=== PATIENT | female | born 1940 | race Caucasian/White ===

== ENCOUNTER 2016-11-24 15:59 | Inpatient (IN) | payer MEDICARE, BC ==
[~2016-11-24] VITALS: Ht 160 cm; Wt 76.6 kg
[~2016-11-24 15:59] MED LIST: AMLO5TAB2 PO; ASPI1TAB PO; ATEN25TA PO; BENT20TA PO; BUME1TAB29 PO; CITA20TA4 PO; DONETAB6 PO; ENAL10TA2 PO; INSULANT SC; LANS30CA PO; SIMV40TA2 PO
[2016-11-24 18:00] VITALS: BP 158/67
--- NOTE | 2016-11-24 19:53 | CR ---
DATE OF CONSULTATION: 11/24/2016 REFERRING PHYSICIAN: Dr. Viki Macias. INDICATIONS: Syncope, bradycardia. HISTORY OF PRESENT ILLNESS: Ms. Samayoa is previously unknown to me. She is a 76-year-old female who has history of coronary artery disease with remote coronary event in 1990. She presented to emergency room in [facility] yesterday after a syncopal event. Unfortunately the patient has dementia and consequently the history provided is somewhat limited. But nevertheless, she remembers that she was standing for prolonged period of time putting away clothes and fairly suddenly noted onset of nausea with sensation of near vomiting and flush feeling in her chest. She thought she had enough time to walk to the next room and sit down but she actually ended up losing consciousness. She came to probably quite promptly and called her daughter who lives nearby who eventually ended up calling an ambulance. She was brought to [facility] where the evaluation was relatively unremarkable but she was somewhat bradycardic in the ER and she had one episode of pause which looks to be like probably not conducted PAC which was a little shy of 2 seconds. But nevertheless for the most part her heart rate was reasonably good in low 50s. She was eventually transferred to our facility. When I saw the patient she was comfortable. She had no complaints. Unfortunately due to her dementia the story is not consistently repeated but it appeared that she may have had yet another episode of syncope a few weeks ago. At this point she has no complaints. PAST MEDICAL HISTORY: 1. Coronary artery disease, history of myocardial infarction in 1990, last cardiac catheterization was in 2013 in [place], it revealed distally occluded left anterior descending artery, about 50% stenosis in left circumflex and EF about 50%. 2. Dyslipidemia. 3. Depression. 4. Dementia. 5. Pernicious anemia. 6. Type 2 diabetes of many years with prominent peripheral neuropathy. 7. History of peptic ulcer disease and gastroesophageal reflux disease. 8. Chronic renal insufficiency. SURGICAL HISTORY: Positive for ankle surgery, cholecystectomy, tubal ligation. OUTPATIENT MEDICATIONS: - atenolol 25 a day - donepezil 5 mg - aspirin 81 a day - Bumex 1 mg a day - citalopram 20 mg day - dicyclomine 20 mg a day - lansoprazole 30 mg a day - Lantus - Norvasc 5 mg a day - simvastatin 40 mg ALLERGIES: No allergies. SOCIAL HISTORY: The patient is single, was never . She has one daughter. She used to smoke but quit in 1990. There is no history of drug or alcohol use. She lives alone in an apartment and her daughter lives just across the street. FAMILY HISTORY: No first-degree relatives with coronary artery disease. REVIEW OF SYSTEMS: She denies any recent fever, chills. There was episodes of nausea but no vomiting. No bleeding problems. No abdominal pain. No incontinence. No peripheral edema. She may have had yet another syncopal event a few weeks ago but unfortunately she is unclear about this. She has slowly progressive dementia but is still able to live independently and communication with her is still perfectly meaningful even though she has definite short-term memory loss. PHYSICAL EXAMINATION: Ms. Samayoa is a 76-year-old female who appears approximately her age. Blood pressure documented 158/67, heart rate 56, she is afebrile, saturation is 96% on room air. Documented weight is 75 kg. She is alert and oriented times three even though she had some trouble with place. Her JVP is not elevated. I do not appreciate carotid bruit. Lungs are clear with good air movement. Heart exam regular rhythm. I do not appreciate a distinct murmur or gallop or rub. Abdomen is soft. No hepatosplenomegaly. No tenderness or rebound tenderness. Good bowel sounds. Extremities are free of edema. Peripheral pulses are easily palpable. LABORATORY DATA: Are from [facility]: She had basic metabolic panel which was normal but for glucose 146, normal liver function tests and normal CBC. Her troponin was negative. Urinalysis was positive for trace protein and some glucose. Chest x-ray was unremarkable. There was several ECGs, all of them revealed sinus bradycardia with heart rate in 50s and nonspecific ST-T abnormalities. There were nonspecific repolarization abnormalities in precordial leads and poor R-wave progression. ASSESSMENT/PLAN: Ms. Samayoa is a 76-year-old female who suffered a syncopal event. She has established coronary artery disease and mildly reduced LV systolic function based on heart catheterization in 2013. The history does not look like sick sinus syndrome, it seems to be more suggestive of orthostatic or maybe vasovagal event. I do think it is appropriate to discontinue her beta william and continue monitoring her on telemetry. My first impression is that she will not need a pacemaker but the time will tell. Otherwise, I do not believe that there are any further adjustments that need to be made. She does not have any anginal symptoms and she does not have clinical congestive heart failure. I spoke extensively with her daughter about the plan and I also spoke with Dr. Macias. I will follow the patient with you. NIRMALA
[2016-11-24] MEDS ORDERED: LIDO1PAD TOP (20:52)
[2016-11-24] MEDS ORDERED: CLOB0.0548 TOP (20:53)
[2016-11-24] MEDS ORDERED: NITR4TASL SL (20:53)
[2016-11-24] MEDS: HumaLOG INSULIN (NovoLOG) PER UNIT SC SCH (21:00)
[2016-11-24] MEDS ORDERED: DEXTROSE 50% 50 ML SYRINGE IV PRN (21:00)
[2016-11-24] MEDS ORDERED: **NOTE PATIENT COMMENT** MISC XX PRN (21:00)
[2016-11-24] MEDS ORDERED: GLUCOSE 4 GM CHEW TABLET PO PRN (21:00)
[2016-11-24] MEDS ORDERED: GLUCAGON FOR INJ 1 MG VIAL (J1610) SC PRN (21:00)
[2016-11-24] MEDS ORDERED: ONDANSETRON 4MG/2ML VIAL (J2405) IV PRN (21:00)
[2016-11-24] MEDS ORDERED: LIDOCAINE 5% (LIDODERM) PATCH TOP PRN (21:00)
--- NOTE | 2016-11-24 21:36 | HPEPDOC ---
General Date of Admission Nov 24, 2016 at 17:39 Attending Physician: TATI HERNANDEZ Chief Complaint The patient is a 76-year-old female admitted with a reason for visit of Bradycardia. Source: Patient, Family, RN notes reviewed, Old records Exam Limitations: No limitations Timing/Duration: Day(s) Severity: Mild Associated Symptoms: Diaphoresis, Headaches, Nausea, Syncope, Dizziness History of Present Illness Ms. Samayoa is a 76-year-old female who is a transfer from [facility] for bradycardia. She is accompanied by her daughter who provides much of the history secondary to patient's underlying Alzheimer's disease. Past medical history significant for diabetes mellitus, dyslipidemia, congestive heart failure, gastroesophageal reflux disease, Alzheimer's disease, coronary artery disease with history of myocardial infarction, history of cholelithiasis with subsequent cholecystectomy, hiatal hernia, anxiety. Daughter states that at 3:00 yesterday afternoon patient developed nausea with a profusely watery mouth and felt hot and flushed before ending up on the floor. Unsure about mechanical fall versus syncope. Patient does state that she called out to her daughter who lives across the wall and when her daughter found her she was sitting on her bed and crying. Daughter states that she gave her mother aspirin, nitroglycerin. She states that her mother complained of a heaviness in her chest and pain in her back. During the episode she also complained of a headache. She states that the pain in her chest with sharp and lasted approximately 3 seconds before abating. The daughter states that the patient has had similar episodes, but not as severe. The most recent episode was approximately 3 weeks ago and before that about 1 month ago. The daughter states that the symptoms are similar with each episode which includes nausea, profusely watery mouth, and feeling hot and flushed. Patient does state that she does feel short of breath at rest, does complain of night sweats and diaphoresis, feelings of dizziness and lightheadedness, chronic neuropathy, chronic swelling in her lower extremities, chronic low back and right hip pain, and diarrhea. Besides review of systems listed above all other review of systems are negative. Hospitalist service was consulted and patient was admitted for further medical management. Home Medications Scheduled Amlodipine Besylate (Amlodipine Besylate) 5 Mg Tab 5 MG PO DAILY (Reported) Aspirin (Aspirin 81) 81 Mg Tab 81 MG PO DAILY (Reported) Citalopram Hydrobromide (Citalopram Hydrobromide) 20 Mg Tab 20 MG PO DAILY ( Reported) Enalapril Maleate (Enalapril Maleate) 10 Mg Tab 10 MG PO DAILY (Reported) Insulin Glargine (Lantus) 1 Units/0.01 Ml Susp 34 UNITS SC QAM (Reported) Lansoprazole (Lansoprazole) 30 Mg Cap 30 MG PO DAILY (Reported) Simvastatin - High Dose (Simvastatin) 40 Mg Tab 40 MG PO QHS (Reported) Scheduled PRN (Lidocaine) 5 % Pad 1 PATCH TOP DAILY PRN PRN PAIN (Reported) APPLY TO BACK Clobetasol Propionate (Clobetasol Propionate E) 0.05 % Cre 1 DOSE TOP BID PRN PRN RASH (Reported) APPLY TO PERINEAL RASH Nitroglycerin (Nitrostat) 0.4 Mg Subl 0.4 MG SL NITRO PRN PRN CHEST PAIN ( Reported) Allergies Coded Allergies: TAPE (Verified Allergy, Unknown, ADHESIVE TAPE, 01/05/15) Past Medical History Medical History 1. Coronary artery disease, myocardial infarction in 1990 2. Diabetes mellitus 3. Congestive heart failure 4. Alzheimer's disease 5. Dyslipidemia 6. Gastroesophageal reflux disease 7. Anxiety 8. Hiatal hernia 9. History of cholelithiasis with cholecystectomy Surgical History 1. Cardiac catheterization 2. Cholecystectomy 3. Tubal ligation 4. Right ankle surgery 5. Tonsillectomy Family History Significant Family History: Asthma, Diabetes, Heart disease (father, myocardial infarction at 47) Social History * Smoker: former Smoker (3 packs per day for 30 years = [id number] history) Alcohol: Denies Drugs: denies Recent Travel/Sick Contacts: Denies: Recent sick contacts, Recent travel Lives independently in a home for seniors No pets Traveled to [place] [facility] Den[facility] exposures Review of Symptoms Constitutional: Reports: Night Sweats, Denies: Chills, Fever Eyes: Denies: Vision change ENT: Reports: Head Aches, Denies: Sinus Congestion, Sore Throat Skin: Denies: Lesions, Rash Pulmonary: Reports: Dyspnea (at rest, 1 episode), Other Symptoms (Sharp chest pain), Denies: Cough Cardiovascular: Reports: Chest Pain (sharp, 3 seconds in duration), Edema ( chronic), Lt Headedness, Denies: Palpitations Gastrointestinal: Reports: Diarrhea, Nausea, Denies: Abdominal Pain, Constipation, Hematochezia, Melena, Vomiting Genitourinary: Denies: Dysuria, Frequency, Hematuria, Incontinence Hematologic: Denies: Bruising Musculoskeletal: Reports: Back Pain, Joint Pain (right hip) Neurological: Reports: Numbness (chronic, bilateral upper and lower extremities ), Denies: Weakness Psych: Reports: Memory Issues (history of Alzheimer's disease) Physical Examination General Exam: Positive: Alert, Cooperative Eye Exam: Positive: Conjunctiva & lids normal, EOMI, PERRLA, Negative: Sclera icteric ENT Exam: Positive: Atraumatic, Mucous membr. moist/pink, Nares Patent, Pharynx Normal, Tongue Midline Neck Exam: Positive: Supple, Negative: JVD, thyromegaly Chest Exam: Positive: Clear to auscultation, Normal air movement Heart Exam: Positive: Bradycardic, Normal S1, Normal S2, Rate Normal, Regular Rhythm, Negative: Murmurs Telemetry: Positive: Bradycardia, No significant arrhythmia Abdomen Exam: Positive: BS Hypoactive, Soft, Negative: Tenderness Extremity Exam: Positive: Normal pulses, Negative: Clubbing, Cyanosis, Edema, Swelling, Tenderness Skin Exam: Positive: Nl turgor and temperature, Negative: Lesion, Rash Neuro Exam: Positive: Cranial Nerves 3-12 NL, Normal Speech Psych Exam: Negative: Oriented x 3 (certain oriented 2) Vital Signs T 96 HR 56 RR 18 BP 158/67 O2 96% on room air Weight (kg): 75.1 Laboratory Data CBC/BMP Laboratory results from [facility] facility: WBC 9.6 Hemoglobin 14.5 Hematocrit 42.9 Platelets 308 Sodium 134 Potassium 4.9 Chloride 97 Bicarbonate 27 BUN 16 Creatinine 1.1 Glucose 290 PT/INR 10.8/1.1 D-dimer 1.44 ([facility]) BNP 117 Troponin 0.017 Microbiology Information provided from [facility]: Urinalysis - WBC 5-10 - Leukocyte esterase +1 RAD Interpretation STUDY: CXR Rad Actions: Report Reviewed [facility] Assessment/Plan This is a 76-year-old female who presents with bradycardia on EKG. Question possible syncopal event secondary to bradycardia. Problems (1) Syncope Status: Acute Problem Text: Question syncopal episode based on history provided Obtain CT of the head without contrast Perform orthostatic blood pressures Obtain serial troponins (2) Bradycardia Status: Acute Problem Text: Cardiology consulted Obtain echocardiogram Hold beta blockers at this time (3) Elevated d-dimer Status: Acute Problem Text: [facility] which is elevated per their laboratory normal ranges Will obtain CT angiogram of the chest (4) Abnormal urinalysis Status: Acute Problem Text: Urinalysis was [facility] showed 5-10 WBCs and 1+ leukocyte esterase Will obtain urine culture Patient has no complaints of urinary frequency, urinary urgency, hematuria Could consider antibiotic based on results of urine culture Patient complains of external vaginal itching: could consider prescribing antifungal (5) Diabetes mellitus Status: Chronic Problem Text: Blood glucose of 290 Will provide alternate coverage with Levemir 34 units subcutaneous daily ( patient takes Lantus 34 units subcutaneous daily at home) Sliding scale insulin with hypoglycemic protocol Plan / VTE VTE Prophylaxis Ordered?: Yes (TEDs and sequentials with knee-high compression stockings) Plan Plan Bradycardia Observe patient on telemetry with continuous cardiac monitoring. Obtain an echocardiogram. Hold patient's beta blockers at this time. Cardiology has been consulted. Syncope Obtain head CT without contrast. Obtain serial troponins. Troponin level at [facility] was 0.017. Obtain orthostatic blood pressures. Patient's blood pressure is 158/67. Will obtain echocardiogram. Patient has history of congestive heart failure. Abnormal urinalysis Urinalysis at [facility] indicated 1+ leukocyte esterase and 5-10 white blood cells. We will obtain urine culture. Patient's only complaint appears to be some external vaginal itching. Could consider prescribing an antifungal. Patient denies urinary frequency, urinary urgency, hematuria. Elevated d-dimer [facility], which is elevated per their laboratory normal ranges. Will obtain CT angiogram of the chest. Hyperglycemia Patient's blood glucose is 219. Patient is a known diabetic. Patient takes 34 units of Lantus subcutaneous daily. Will provide alternate coverage of Levemir 34 units subcutaneous daily as well as sliding scale insulin and hypoglycemic protocol. Diet: Consistent carbohydrate-2 g sodium DVT prophylaxis: TEDs and sequentials Disposition Admit to the PCU for observation Attending: Dr. Aponte Diet: Continue Current (consistent carbohydrate-2 g sodium) Activity: Continue Current Diagnostics: Check Labs, Repeat Labs in AM, Obtain Cultures, TTE Anticipated Discharge: Home [facility]NA [facility] Nov 24, 2016 21:36 Anticipated Discharge: Home [facility]NA [facility] Nov 24, 2016 21:36
[2016-11-24 21:39] VITALS: BP 155/64
[2016-11-24] MEDS ORDERED: diphenhydrAMINE INJ 50MG/ML VIAL (J1200) IV ONE (23:00)
[2016-11-24 23:06] LABS: ANION GAP 6 MEQ/L (8-16); BLOOD UREA NITROGEN 14 MG/DL (7-18); CALCIUM LEVEL 8.6 MG/DL (8.8-10.2); CARBON DIOXIDE LEVEL 27 MEQ/L (21-32); CHLORIDE LEVEL 105 MEQ/L (98-107); CREATININE FOR GFR 1.19 MG/DL (0.55-1.02); GLOMERULAR FILTRATION RATE 46.7 (>39); GLUCOSE, FASTING 272 MG/DL (83-110); POTASSIUM SERUM 4.7 MEQ/L (3.5-5.1); SODIUM LEVEL 138 MEQ/L (136-145)
[2016-11-24] MEDS ORDERED: SLF 3 ML SYR IV PRN (23:45)
[2016-11-25 00:15] VITALS: BP 154/74
[2016-11-25] MEDS ORDERED: ISOVUE-370 76% 100ML VIAL (Q9967) As Ordered ONE (00:33)
--- NOTE | 2016-11-25 01:50 | REPUSA ---
CLINICAL HISTORY: Dyspnea, exclude PE. TECHNIQUE: Multiple incremental axial, coronal and oblique images are obtained from the thoracic inle t to the upper abdomen. Intravenous contrast material was administered as per pulmonary embolism prot ocol. COMMENTS: There is excellent opacification of pulmonary arterial system without evidence for pulmonary embolism . Aorta is of normal caliber without evidence for dissection or aneurysm. Bilateral basilar atelectat ic pulmonary changes. There is no evidence of pleural or parenchymal mass. There are no pleural effusions. There is no evid ence of hilar or mediastinal lymphadenopathy. The heart and great vessels are within normal limits. Images of the upper abdomen demonstrate no evidence of adrenal mass. The bony structures are free of lytic or blastic lesions. Multilevel degenerative changes are seen in volving the visualized thoracolumbar spine. Scattered calcifications are seen involving the aorta and major branches compatible with atherosclero sis. IMPRESSION: No evidence for pulmonary embolism. Bilateral basilar atelectatic pulmonary changes. Thank you for your kind referral of this patient.
--- NOTE | 2016-11-25 01:50 | REPUSA ---
CLINICAL HISTORY: Headache. TECHNIQUE: Multiple axial CT images were obtained through the brain without IV contrast material. COMMENTS: There is normal configuration of sella turcica. There are no intra or extra-axial collections. There is no mass effect or midline shift. There is no evidence of hematoma formation. No hydrocephalus is p resent. The ventricles are symmetrical. No abnormal calcifications are present. There is diffuse age-appropriate cerebellar and cerebral atrophy with proportionally dilated ventricl es and cortical sulci. There are bilateral periventricular and subcortical white matter hypolucencies compatible with mild c hronic microvascular disease. Otherwise, no significant focal abnormalities are seen either in the posterior fossa or supratentoria l compartment. IMPRESSION: 1. Age-appropriate cerebellar and cerebral atrophy. 2. Mild chronic microvascular disease. 3. No evidence of acute intracranial pathology. Thank you for your kind referral of this patient.
[2016-11-25] MEDS: SLF 3 ML SYR IV SCH ×3 (05:33→22:42)
[2016-11-25 06:00] VITALS: BP 144/62
[2016-11-25 06:26] LABS: MEAN CORPUSCULAR HEMOGLOBIN 29.5 pg (27.0-33.0); MEAN CORPUSCULAR HGB CONC 32.7 g/dl (32.0-36.5); MEAN CORPUSCULAR VOLUME 90.1 fl (80.0-96.0); RED CELL DISTRIBUTION WIDTH 12.1 % (11.5-14.5); WHITE BLOOD COUNT 7.7 K/mm3 (4.0-10.0)
[2016-11-25 06:32] LABS: BLOOD UREA NITROGEN 13 MG/DL (7-18); CALCIUM LEVEL 8.8 MG/DL (8.8-10.2); CARBON DIOXIDE LEVEL 26 MEQ/L (21-32); CHLORIDE LEVEL 110 MEQ/L (98-107); CREATININE FOR GFR 0.96 MG/DL (0.55-1.02); GLUCOSE, FASTING 137 MG/DL (83-110)
[2016-11-25 06:44] LABS: ANION GAP 5 MEQ/L (8-16); POTASSIUM SERUM 4.3 MEQ/L (3.5-5.1); SODIUM LEVEL 141 MEQ/L (136-145)
[2016-11-25] MEDS: HumaLOG INSULIN (NovoLOG) PER UNIT SC SCH ×4 (07:50→21:00)
[2016-11-25 08:04] VITALS: BP 128/60
--- NOTE | 2016-11-25 08:55 | IPN ---
DATE: 11/25/2016 Mrs. Samayoa had a good night. She did not have any bradycardia out of what I would consider normal. There was one pause of 1.8-second, which is perfectly normal during sleep, but for the most part her heart rate was in the 50s and 60s. She also had episodes what looks like hallucinations. Apparently, she had the impression that people are coming to her room and stealing her furniture. It looks like her mind has cleared up in the morning. Blood pressure is 128/60, heart rate, as above, in 50s and 60s. She is afebrile. Saturation 97% on room air. Weight is 76.3 kg. She is alert and oriented times two. She was confused about date, but she recognizes she was in the hospital, even though she thought that [place] was in [place]. Her jugular venous pressure is not up. Lungs are clear to auscultation. Heart exam with regular rhythm without gallop, rub or murmur. Abdomen is soft, nontender. No peripheral edema and neurologically, besides dementia, I do not appreciate any focal findings. LABORATORY: CBC is normal. Basic metabolic panel is essentially normal. Cardiac enzymes have been normal. ECG is pending. ASSESSMENT AND PLAN: Mrs. Samayoa is a 76-year-old woman who has a remote history of coronary artery disease with myocardial infarction in 1990. Her last heart catheterization in 2013 revealing distally occluded LAD and borderline disease in left circumflex and mildly reduced LV systolic function. She presented after a syncopal event. By description, it sounds to be either orthostatic or neurocardiogenic. She did have mild bradycardia, but certainly no findings to support placement of pacemaker. Her atenolol has been discontinued. At this point, I would continue monitoring for at least another 24 hours and would let the patient ambulate with supervision. Provided no other events occur, I would think it will be fine from my perspective to discharge her home. Obviously, if we detect some bradyarrhythmias or other abnormalities, this can be always reconsidered. I will not make any medication changes today. Dr. Cardenas will be available tomorrow. He is her principal loss prevention leader.
[2016-11-25] MEDS: PANTOPRAZOLE 40MG INJ (PROTONIX) (C9113) IV SCH (10:29)
[2016-11-25] MEDS: ASPIRIN 81 MG ENTERIC TAB PO SCH (10:33)
[2016-11-25] MEDS: ENALAPRIL MALEATE 10 MG TAB PO SCH (10:34)
[2016-11-25] MEDS: CitaloPRAM (CeleXA) 20 MG TAB PO SCH (10:34)
[2016-11-25] MEDS: amLODIPine 5 MG TAB PO SCH (10:34)
[2016-11-25 11:43] VITALS: BP 126/68
[2016-11-25 16:00] VITALS: BP 130/65
--- NOTE | 2016-11-25 19:16 | IPNPDOC ---
Subjective Date Seen The patient was seen on 11/25/16. Subjective Chief Complaint/HPI The patient is a 76-year-old female admitted with a reason for visit of Bradycardia. Events since last encounter pt seen and examined, appears to doing well, was confused last night per nursing staff and her daughter, her daughter was sitting at bedside who stated this has happened before, pt had a one second pause on tele, she denies any dizziness, Objective Physical Examination General Exam: Positive: Cooperative Eye Exam: Positive: Conjunctiva & lids normal, EOMI, PERRLA, Negative: Sclera icteric ENT Exam: Positive: Atraumatic, Mucous membr. moist/pink, Nares Patent, Pharynx Normal, Tongue Midline Neck Exam: Positive: Supple, Negative: JVD, thyromegaly Chest Exam: Positive: Clear to auscultation, Normal air movement Heart Exam: Positive: Bradycardic, Normal S1, Normal S2, Rate Normal, Regular Rhythm, Negative: Murmurs Telemetry: Positive: Bradycardia, No significant arrhythmia Abdomen Exam: Positive: BS Hypoactive, Soft, Negative: Tenderness Extremity Exam: Positive: Normal pulses, Negative: Clubbing, Cyanosis, Edema, Swelling, Tenderness Skin Exam: Positive: Nl turgor and temperature, Negative: Lesion, Rash Neuro Exam: Positive: Cranial Nerves 3-12 NL, Normal Speech Psych Exam: Negative: Oriented x 3 (certain oriented 2) Assessment /Plan Problems (1) Syncope Status: Acute Problem Text: * Question syncopal episode based on history provided, fall was unwitnessed and pt can't remember if she lost consciousness * CT head was negative * will order orthostatics * continue to monitor on tele * cardiology consulted * PT/OT pt lives alone (2) Bradycardia Status: Acute Problem Text: Cardiology consulted Obtain echocardiogram Hold beta blockers at this time (3) Elevated d-dimer Status: Acute Problem Text: D-dimer [facility] facility was 1.44 which is elevated per their laboratory normal ranges CT negative for PE (4) Diabetes mellitus Status: Chronic Problem Text: Blood glucose of 290 Will provide alternate coverage with Levemir 34 units subcutaneous daily ( patient takes Lantus 34 units subcutaneous daily at home) Sliding scale insulin with hypoglycemic protocol (5) Alzheimer's dementia Status: Chronic Response to Treatment: Stable Problem Text: pt has a chronic dementia Plan/VTE VTE Prophylaxis Ordered?: Yes (TEDs and sequentials with knee-high compression stockings) Plan Diet: Continue Current (consistent carbohydrate-2 g sodium) Activity: Continue Current Diagnostics: Check Labs, Repeat Labs in AM, Obtain Cultures, TTE Anticipated Discharge: Home VS, I&O, 24H, [place] Vital Signs/I&O Vital Signs Date Time Temp Pulse Resp B/P Pulse Ox O2 Delivery O2 Flow Rate FiO2 11/25/16 16:00 97.7 76 18 130/65 97 Room Air I&O- Last 24 Hours up to 6 AM 11/25/16 05:59 Intake Total 0 ml Output Total 250 ml Balance -250 ml Laboratory Data 24H LABS Laboratory Tests 2 11/24/16 21:47: Bedside Glucose (Misc Panel) 266H 11/24/16 21:55: Anion Gap 6L, Blood Urea Nitrogen 14, Creatinine 1.19H, Sodium Level 138, Potassium Level 4.7, Chloride Level 105, Carbon Dioxide Level 27, Calcium Level 8.6L, Total Creatine Kinase 74, Creatine Kinase MB 1.0, Creatine Kinase MB Relative Index 1.35, Glomerular Filtration Rate 46.7, Troponin I < 0.02 11/25/16 05:32: Anion Gap 5L, Blood Urea Nitrogen 13, Creatinine 0.96, Sodium Level 141, Potassium Level 4.3, Chloride Level 110H, Carbon Dioxide Level 26, Calcium Level 8.8, Total Creatine Kinase 70, Creatine Kinase MB 1.0, Creatine Kinase MB Relative Index 0.01, Troponin I < 0.02 11/25/16 11:17: Bedside Glucose (Misc Panel) 308H 11/25/16 16:45: Bedside Glucose (Misc Panel) 289H CBC/BMP Laboratory Tests 11/24/16 21:55 Calcium Level 8.6 L, Total Creatine Kinase 74 11/25/16 05:32 Calcium Level 8.8, Total Creatine Kinase 70, Red Blood Count 4.70, Mean Corpuscular Volume 90.1, Mean Corpuscular Hemoglobin 29.5, Mean Corpuscular Hemoglobin Concent 32.7, Red Cell Distribution Width 12.1 HEATHER TEE DO Nov 25, 2016 19:16
[2016-11-25 20:07] VITALS: BP 146/64
[2016-11-25] MEDS ORDERED: LEVEMIR (INSULIN DETEMIR) 1 UNITS/0.01ML SC SCH (21:00)
[2016-11-25] MEDS ORDERED: SIMVASTATIN 40 MG TAB PO SCH (21:00)
[2016-11-26 00:05] VITALS: BP 144/69
[2016-11-26] MEDS: SLF 3 ML SYR IV SCH ×2 (06:00→13:02)
[2016-11-26 06:24] VITALS: BP 129/60
[2016-11-26 06:53] LABS: MEAN CORPUSCULAR HGB CONC 33.5 g/dl (32.0-36.5); MEAN CORPUSCULAR VOLUME 89.6 fl (80.0-96.0); RED CELL DISTRIBUTION WIDTH 12.2 % (11.5-14.5); WHITE BLOOD COUNT 8.2 K/mm3 (4.0-10.0)
[2016-11-26 07:06] LABS: ANION GAP 9 MEQ/L (8-16); BLOOD UREA NITROGEN 16 MG/DL (7-18); CALCIUM LEVEL 8.5 MG/DL (8.8-10.2); CARBON DIOXIDE LEVEL 25 MEQ/L (21-32); CHLORIDE LEVEL 107 MEQ/L (98-107); GLOMERULAR FILTRATION RATE > 60.0 (>39); GLUCOSE, FASTING 136 MG/DL (83-110); POTASSIUM SERUM 3.6 MEQ/L (3.5-5.1); SODIUM LEVEL 141 MEQ/L (136-145)
[2016-11-26 08:00] VITALS: BP_SYST 126; BP_SYST 133; BP_DIAS 69; BP_DIAS 75
--- NOTE | 2016-11-26 08:32 | ECHO ---
DATE OF PROCEDURE: 11/25/2016 REFERRING PHYSICIAN: Dr. Lara Tafoya . INDICATION: Syncope and coronary artery disease. The patient measures 160 cm and weight 76 kg. DIMENSIONS: IVS - 1.0 LV - 4.8 LVPW -0.9 LA - 3.9 Aorta - 2.8 FINDINGS: The study is of fair technical quality. Left ventricle is of normal size. There is a wall motion abnormality involving distal septum, distal anterior wall and apex that are essentially akinetic. The remaining LV segment appear to have normal contractility. Overall ejection fraction is estimated around 45 to 50%. Right ventricle is normal. Both atria appear normal. There are mild sclerotic abnormalities of aortic and mitral valves but mobility of both is preserved. Tricuspid valve appears normal. Pulmonic valve was not well seen. No pericardial effusion is noted. Inferior vena cava is normal size. Aortic root is normal. Aortic arch was not well seen. Abdominal aorta appears normal. Doppler interrogation reveals no significant aortic stenosis or insufficiency. There is trace mitral insufficiency and trace tricuspid insufficiency. Calculated pulmonary artery pressure is within normal limits. Mitral inflow pattern and tissue Doppler imaging of mitral annulus reveal grade 1 diastolic dysfunction. CONCLUSION: 1. Study is of fair technical quality. 2. Normal LV size with segmental wall motion abnormality as noted above and overall mildly reduced LV systolic function. Grade 1 diastolic dysfunction. 3. No hemodynamically significant valvular disease. 4. Likely normal central venous pressure and pulmonary artery pressure. 5. Cannot completely rule out presence of small PFO. COMMENT: SBE prophylaxis is not recommended. INDICATION MTDD
[2016-11-26] MEDS: CitaloPRAM (CeleXA) 20 MG TAB PO SCH (08:41)
[2016-11-26] MEDS: PANTOPRAZOLE 40MG INJ (PROTONIX) (C9113) IV SCH (08:41)
[2016-11-26] MEDS: HumaLOG INSULIN (NovoLOG) PER UNIT SC SCH ×2 (08:41→13:03)
[2016-11-26 08:42] VITALS: BP 133/69
[2016-11-26] MEDS: ENALAPRIL MALEATE 10 MG TAB PO SCH (08:42)
[2016-11-26] MEDS: amLODIPine 5 MG TAB PO SCH (08:43)
[2016-11-26] MEDS: ASPIRIN 81 MG ENTERIC TAB PO SCH (08:43)
--- NOTE | 2016-11-26 09:13 | IPNPDOC ---
Subjective Date Seen The patient was seen on 11/26/16. Subjective Chief Complaint/HPI The patient is a 76-year-old female admitted with a reason for visit of Bradycardia. General: Reports: Normal Appetite, Denies: Chills Constitutional: Denies: Fever, Night Sweats Pulmonary: Denies: Dyspnea, Pleuritic Chest Pain Cardiovascular: Denies: Chest Pain, Orthopnea, Palpitations Gastrointestinal: Denies: Abdominal Pain, Vomiting Objective Physical Examination General Exam: Positive: Cooperative Eye Exam: Positive: Conjunctiva & lids normal, EOMI, PERRLA, Negative: Sclera icteric ENT Exam: Positive: Atraumatic, Mucous membr. moist/pink, Nares Patent, Pharynx Normal, Tongue Midline Neck Exam: Positive: Supple, Negative: JVD, thyromegaly Chest Exam: Positive: Clear to auscultation, Normal air movement Heart Exam: Positive: Bradycardic, Normal S1, Normal S2, Rate Normal, Regular Rhythm, Negative: Murmurs Telemetry: Positive: Bradycardia, No significant arrhythmia Abdomen Exam: Positive: BS Hypoactive, Soft, Negative: Hepatospenomegaly, Tenderness Extremity Exam: Positive: Normal pulses, Negative: Clubbing, Cyanosis, Edema, Swelling, Tenderness Skin Exam: Positive: Nl turgor and temperature, Negative: Lesion, Rash Neuro Exam: Positive: Cranial Nerves 3-12 NL, Normal Speech Psych Exam: Negative: Oriented x 3 (certain oriented 2) Assessment /Plan Problems (1) Syncope Status: Acute Problem Text: Stable and OK for discharge per Cardiology. * Question syncopal episode based on history provided, fall was unwitnessed and pt can't remember if she lost consciousness * CT head was negative * will order orthostatics * continue to monitor on tele * cardiology consulted * PT/OT pt lives alone (2) Bradycardia Status: Acute Problem Text: Cardiology consulted Obtain echocardiogram Hold beta blockers at this time (3) Elevated d-dimer Status: Acute Problem Text: D-dimer outlying facility was 1.44 which is elevated per their laboratory normal ranges CT negative for PE (4) Diabetes mellitus Status: Chronic Problem Text: Blood glucose of 290 Will provide alternate coverage with Levemir 34 units subcutaneous daily ( patient takes Lantus 34 units subcutaneous daily at home) Sliding scale insulin with hypoglycemic protocol (5) Alzheimer's dementia Status: Chronic Response to Treatment: Stable Problem Text: pt has a chronic dementia. she will be candidate for placement eventually. Plan/VTE VTE Prophylaxis Ordered?: Yes (TEDs and sequentials with knee-high compression stockings) Plan Diet: Continue Current (consistent carbohydrate-2 g sodium) Activity: Continue Current Therapy: Home Safety Eval (Likely discharge if HSE passed.) Diagnostics: Check Labs, Repeat Labs in AM, Obtain Cultures, TTE Anticipated Discharge: Home VS, I&O, 24H, Fishbone Vital Signs/I&O Vital Signs Date Time Temp Pulse Resp B/P Pulse Ox O2 Delivery O2 Flow Rate FiO2 11/26/16 08:43 66 11/26/16 08:42 133/69 11/26/16 08:00 98.4 18 96 Room Air I&O- Last 24 Hours up to 6 AM 11/26/16 06:00 Intake Total 240 ml Output Total 900 ml Balance -660 ml Laboratory Data 24H LABS Laboratory Tests 2 11/25/16 11:17: Bedside Glucose (Misc Panel) 308H 11/25/16 16:45: Bedside Glucose (Misc Panel) 289H 11/25/16 20:11: Bedside Glucose (Misc Panel) 245H 11/26/16 06:19: Anion Gap 9, Blood Urea Nitrogen 16, Creatinine 0.90, Sodium Level 141, Potassium Level 3.6, Chloride Level 107, Carbon Dioxide Level 25, Calcium Level 8.5L, Glomerular Filtration Rate > 60.0 CBC/BMP Laboratory Tests 11/26/16 06:19 Calcium Level 8.5 L, Red Blood Count 4.06, Mean Corpuscular Volume 89.6, Mean Corpuscular Hemoglobin 30.0, Mean Corpuscular Hemoglobin Concent 33.5, Red Cell Distribution Width 12.2 Carlos Roldan MD Nov 26, 2016 09:13
[2016-11-26 12:00] VITALS: BP 126/72
--- NOTE | 2016-11-27 08:57 | DSES ---
DATE OF ADMISSION: 11/24/2016 DATE OF DISCHARGE: 11/26/2016 CHIEF COMPLAINT: The patient was admitted because of complaint of syncopal event or near syncopal event. She had bradycardia. She has Alzheimer's disease, history of congestive heart failure (CHF), history of coronary disease with myocardial infarction, history of cholelithiasis and subsequent cholecystectomy, hernia, anxiety. She was admitted as she felt initially profusely drooling in her mouth and felt hot and flushed and then she fainted. She was seen at [facility] and transferred here, admitted by Dr. Aponte and seen in consultation by Dr. Sommer. PAST MEDICAL HISTORY: She said she had a W[place] in 1990, catheterization in 2013 which revealed distally occluded left anterior descending with 50% stenosis in the left circumflex and ejection fraction of about 50%, dyslipidemia, depression, dementia, pernicious anemia, diabetes type 2 for many years. MEDICATIONS: On admission included: - donepezil 5 mg daily - atenolol 25 mg daily - citalopram 20 mg daily - Bumex 1 mg daily - dicyclomine 20 mg daily - Norvasc 5 - simvastatin 40 She quit smoking in 1990. She was felt that primarily the bradycardia was in part due to medication side effects and possible vasodepressor syncope. She was taken off atenolol. Donepezil was held. Bentyl was held. Her heart rate improved to run about 60. She had no further episodes and was up and around walking without specific limitations. CONDITION ON DISCHARGE: Improved without recurrent syncope. DISCHARGE DIAGNOSES: 1. Syncope associated with bradycardia, possible vasodepressor syncope. 2. History of coronary artery disease. 3. Diabetes type 2 in fair control. PLAN: Discharge home. Followup in 1-[address] Roldan at his office. Followup with Dr. Sommer per his specifications. Activity as tolerated. Resume controlled carbohydrate diet. DISCHARGE MEDICATIONS: - simvastatin 40 - Lantus 34 units daily - amlodipine 5 mg daily - aspirin 81 mg daily - Celexa 20 mg daily - Vasotec 10 mg daily - She will resume her proton pump inhibitor at 40 mg daily - pantoprazole 40 mg listed here, she may be using omeprazole at home Donepezil will be stopped. Bentyl will be stopped. Atenolol has been stopped. Without the atenololol, her blood pressure has remained satisfactory at 126/72 to 144/69.
== END 2016-11-26 16:00 | disposition home health service (06) | DRG 310 ==
LOC: M PCU 17:39
PROVIDERS: ADMIT Hospitalist; ATTEND Family Medicine
DX: R00.1 Bradycardia, unspecified (principal); R55 Syncope and collapse; E11.51 Type 2 diabetes mellitus with diabetic peripheral angiopathy without gangrene; Z79.899 Other long term (current) drug therapy; Z79.4 Long term (current) use of insulin; Z79.82 Long term (current) use of aspirin; I50.9 Heart failure, unspecified; I25.10 Atherosclerotic heart disease of native coronary artery without angina pectoris; I25.2 Old myocardial infarction; Z87.891 Personal history of nicotine dependence; G30.9 Alzheimer's disease, unspecified; F02.80 Dementia in other diseases classified elsewhere, unspecified severity, without behavioral disturbance, psychotic disturbance, mood disturbance, and anxiety; K21.9 Gastro-esophageal reflux disease without esophagitis; F41.9 Anxiety disorder, unspecified

== ENCOUNTER → 2016-12-04 | Outpatient (REF) | payer MEDICARE, BC ==
[~2016-12-04] MED LIST changes: +CLOB0.0548 TOP; +LIDO1PAD TOP; +NITR4TASL SL
== END ==
LOC: M SFHCCLAY 15:06
PROVIDERS: ATTEND Family Medicine
DX: E11.22 Type 2 diabetes mellitus with diabetic chronic kidney disease (principal)
CPT/HCPCS: 83036; G0463

== ENCOUNTER → 2017-05-04 | Outpatient (REF) | payer MEDICARE, BC | LOC: M SFHCCLAY 11:45 | PROVIDERS: ATTEND Family Medicine | DX: R30.0 Dysuria (principal) | CPT/HCPCS: 81002; 87088; 87186; G0463 ==

== ENCOUNTER → 2017-10-07 | Outpatient (REF) | payer MEDICARE, BC ==
[2017-10-07 19:18] LABS: ALT/SGPT 18 U/L (12-78); ANION GAP 7 MEQ/L (8-16); BLOOD UREA NITROGEN 14 MG/DL (7-18); CALCIUM LEVEL 8.9 MG/DL (8.8-10.2); CARBON DIOXIDE LEVEL 29 MEQ/L (21-32); CHLORIDE LEVEL 100 MEQ/L (98-107); CHOLESTEROL LEVEL 141 MG/DL (<200); CREATININE FOR GFR 0.94 MG/DL (0.55-1.02); GLOMERULAR FILTRATION RATE > 60.0 (>39); GLUCOSE, FASTING 334 MG/DL (70-100); HDL CHOLESTEROL 50 MG/DL (>40); LDL CHOLESTEROL 64.4 MG/DL (<100); NON-HDL-C 91 MG/DL; POTASSIUM SERUM 4.4 MEQ/L (3.5-5.1); SODIUM LEVEL 136 MEQ/L (136-145); TRIGLYCERIDES LEVEL 133 MG/DL (<150)
[2017-10-07 20:18] LABS: MALB URINE SIEMENS 26.3 MG/L; MAU/CREAT RATIO 24.1 MCG/MG (0.0-30.0)
[2017-10-07 21:42] LABS: ESTIMATED AVERAGE GLUCOSE 263 MG/DL (60-110); HEMOGLOBIN A1c 10.8 %
== END ==
LOC: M SFHCCLAY 10:56
DX: I25.10 Atherosclerotic heart disease of native coronary artery without angina pectoris (principal); E11.22 Type 2 diabetes mellitus with diabetic chronic kidney disease; N18.3 Chronic kidney disease, stage 3 (moderate); K21.0 Gastro-esophageal reflux disease with esophagitis; N76.3 Subacute and chronic vulvitis
CPT/HCPCS: 84460

== ENCOUNTER → 2017-12-16 | Outpatient (REF) | payer MEDICARE, BC ==
[2017-12-17 11:46] LABS: ANION GAP 7 MEQ/L (8-16); BLOOD UREA NITROGEN 19 MG/DL (7-18); CARBON DIOXIDE LEVEL 31 MEQ/L (21-32); CHLORIDE LEVEL 99 MEQ/L (98-107); GLOMERULAR FILTRATION RATE 56.9 (>39); GLUCOSE, FASTING 262 MG/DL (70-100); POTASSIUM SERUM 4.1 MEQ/L (3.5-5.1); SODIUM LEVEL 137 MEQ/L (136-145)
[2017-12-17 12:50] LABS: ESTIMATED AVERAGE GLUCOSE 243 MG/DL (60-110); HEMOGLOBIN A1c 10.1 %
== END ==
LOC: M SFHCCLAY 16:02
DX: I25.10 Atherosclerotic heart disease of native coronary artery without angina pectoris (principal); E11.22 Type 2 diabetes mellitus with diabetic chronic kidney disease; N18.3 Chronic kidney disease, stage 3 (moderate)
CPT/HCPCS: 83036

== ENCOUNTER → 2018-07-23 | Outpatient (REF) | payer MEDICARE, BC ==
[2018-07-23 17:00] LABS: ANION GAP 7 MEQ/L (8-16); BLOOD UREA NITROGEN 11 MG/DL (7-18); CALCIUM LEVEL 9.7 MG/DL (8.8-10.2); CARBON DIOXIDE LEVEL 32 MEQ/L (21-32); CHLORIDE LEVEL 97 MEQ/L (98-107); CREATININE FOR GFR 0.98 MG/DL (0.55-1.30); GLOMERULAR FILTRATION RATE 58.1 (>32); GLUCOSE, FASTING 134 MG/DL (70-100); POTASSIUM SERUM 4.1 MEQ/L (3.5-5.1); SODIUM LEVEL 136 MEQ/L (136-145)
[2018-07-23 17:14] LABS: ESTIMATED AVERAGE GLUCOSE 209 MG/DL (60-110); HEMOGLOBIN A1c 8.9 %
== END ==
LOC: M SFHCCLAY 12:32
DX: E11.22 Type 2 diabetes mellitus with diabetic chronic kidney disease (principal)
CPT/HCPCS: 83036

== ENCOUNTER → 2018-12-10 | Outpatient (REF) | payer MEDICARE, BC ==
[~2018-12-10] MED LIST changes: -AMLO5TAB2 PO; +AMLO5TAB6 PO
[2018-12-10 16:45] LABS: HEMOGLOBIN A1c 7.5 %
[2018-12-10 17:02] LABS: CALCIUM LEVEL 9.1 MG/DL (8.8-10.2); GLOMERULAR FILTRATION RATE 56.8 (>32); POTASSIUM SERUM 4.1 MEQ/L (3.5-5.1)
== END ==
LOC: M SFHCCLAY 12:16
PROVIDERS: ATTEND Family Medicine
DX: E11.22 Type 2 diabetes mellitus with diabetic chronic kidney disease (principal); I25.10 Atherosclerotic heart disease of native coronary artery without angina pectoris

== ENCOUNTER → 2019-05-25 | Outpatient (REF) | payer MEDICARE, BC ==
[~2019-05-25] MED LIST changes: -ASPI1TAB PO; +ASPI81TA26 PO; -CITA20TA4 PO; +CITA20TA6 PO; -SIMV40TA2 PO; +SIMV40TA20 PO
== END ==
LOC: M SFHCCLAY 11:11
PROVIDERS: ATTEND Family Medicine
DX: R10.9 Unspecified abdominal pain (principal); Z87.440 Personal history of urinary (tract) infections
CPT/HCPCS: 81002; 87086; G0463

== ENCOUNTER → 2019-06-09 | Outpatient (CLI) | payer MEDICARE, BC ==
[~2019-06-09] MED LIST changes: +SIMV40TA2 PO; -SIMV40TA20 PO
--- NOTE | 2019-06-09 14:00 | REP ---
BILATERAL ANKLE SERIES: Four views of the bilateral ankles performed. No fracture or dislocation is seen. Ankle mortise is anatomic bilaterally. There is mild bilateral soft tissue swelling. There is mild inferior calcaneal spurring bilaterally. There is mild calcification of the interosseous membrane between the distal tibia and fibula on the left. I see no other significant finding. IMPRESSION: No fracture or dislocation. Mild soft tissue swelling. Mild calcaneal spurring. Electronically Signed by Fahad Medina MD 06/09/2019 04:56 P
== END ==
LOC: M CLY 13:15
PROVIDERS: ATTEND Nurse Practitioner Family
DX: M25.471 Effusion, right ankle (principal); M25.472 Effusion, left ankle; M77.31 Calcaneal spur, right foot; M77.32 Calcaneal spur, left foot; M25.571 Pain in right ankle and joints of right foot; M25.572 Pain in left ankle and joints of left foot
CPT/HCPCS: 73610; G0463

== ENCOUNTER → 2020-04-04 | Outpatient (REF) | payer MEDICARE, BC ==
[~2020-04-04] MED LIST changes: -SIMV40TA2 PO; +SIMV40TA20 PO
[2020-04-04 18:31] LABS: HEMOGLOBIN A1c 8.4 %
== END ==
LOC: M SFHCCLAY 10:50
PROVIDERS: ATTEND Family Medicine
DX: E11.22 Type 2 diabetes mellitus with diabetic chronic kidney disease (principal)

== ENCOUNTER → 2020-05-01 | Outpatient (REF) ==
[~2020-05-01] MED LIST changes: +AMLO1TAB24 PO; -AMLO5TAB6 PO; +ENAL-36 PO; -ENAL10TA2 PO
[2020-07-10 09:55] LABS: HEMATOCRIT 39.4 % (36.0-47.0); HEMOGLOBIN 13.2 g/dl (12.0-15.5); MEAN CORPUSCULAR HEMOGLOBIN 30.3 pg (27.0-33.0); MEAN CORPUSCULAR HGB CONC 33.5 g/dl (32.0-36.5); MEAN CORPUSCULAR VOLUME 90.6 fl (80.0-96.0); PLATELET COUNT, AUTOMATED 302 10^3/uL (150-450); RED BLOOD COUNT 4.35 10^6/uL (4.00-5.40)
== END ==
PROVIDERS: ATTEND Family Medicine
DX: I10 Essential (primary) hypertension (principal)

== ENCOUNTER → 2020-05-08 | Outpatient (REF) ==
[2020-05-29 10:07] LABS: WHITE BLOOD COUNT 8.9 10^3/uL (4.0-10.0)
[2020-05-29 10:08] LABS: HEMOGLOBIN 13.8 g/dl (12.0-15.5); MEAN CORPUSCULAR HEMOGLOBIN 30.7 pg (27.0-33.0); MEAN CORPUSCULAR HGB CONC 33.7 g/dl (32.0-36.5); MEAN CORPUSCULAR VOLUME 91.1 fl (80.0-96.0); PLATELET COUNT, AUTOMATED 368 10^3/uL (150-450)
[2020-05-29 11:33] LABS: BLOOD UREA NITROGEN 11 MG/DL (7-18); CALCIUM LEVEL 8.8 MG/DL (8.8-10.2); CARBON DIOXIDE LEVEL 29 MEQ/L (21-32); CHLORIDE LEVEL 101 MEQ/L (98-107); CREATININE FOR GFR 0.92 MG/DL (0.55-1.30); GLOMERULAR FILTRATION RATE > 60.0 (>32); GLUCOSE, FASTING 241 MG/DL (70-100); POTASSIUM SERUM 3.9 MEQ/L (3.5-5.1); SODIUM LEVEL 139 MEQ/L (136-145)
== END ==
PROVIDERS: ATTEND Family Medicine
DX: I10 Essential (primary) hypertension (principal)

== ENCOUNTER → 2020-06-05 | Outpatient (REF) | payer MEDICARE, BC ==
[2020-06-05 11:15] LABS: HEMATOCRIT 43.8 % (36.0-47.0); HEMOGLOBIN 14.3 g/dl (12.0-15.5); MEAN CORPUSCULAR HEMOGLOBIN 29.5 pg (27.0-33.0); MEAN CORPUSCULAR HGB CONC 32.6 g/dl (32.0-36.5); MEAN CORPUSCULAR VOLUME 90.3 fl (80.0-96.0); PLATELET COUNT, AUTOMATED 370 10^3/uL (150-450); RED BLOOD COUNT 4.85 10^6/uL (4.00-5.40); WHITE BLOOD COUNT 11.3 10^3/uL (4.0-10.0)
[2020-06-05 11:25] LABS: CALCIUM LEVEL 8.8 MG/DL (8.8-10.2); GLOMERULAR FILTRATION RATE 56.5 (>32); POTASSIUM SERUM 3.1 MEQ/L (3.5-5.1)
== END ==
PROVIDERS: ATTEND Family Medicine
DX: I10 Essential (primary) hypertension (principal)

== ENCOUNTER → 2020-06-07 | Outpatient (REF) | payer MEDICARE, BC | PROVIDERS: ATTEND Family Medicine | DX: I10 Essential (primary) hypertension (principal) ==

== ENCOUNTER → 2020-06-12 | Outpatient (REF) | payer MEDICARE, BC ==
[2020-06-12 11:02] LABS: BLOOD UREA NITROGEN 9 MG/DL (7-18); CARBON DIOXIDE LEVEL 27 MEQ/L (21-32); CHLORIDE LEVEL 105 MEQ/L (98-107); CREATININE FOR GFR 0.87 MG/DL (0.55-1.30); GLOMERULAR FILTRATION RATE > 60.0 (>32); GLUCOSE, FASTING 116 MG/DL (70-100); POTASSIUM SERUM 3.6 MEQ/L (3.5-5.1); SODIUM LEVEL 141 MEQ/L (136-145)
== END ==
PROVIDERS: ATTEND Physician Assistant
DX: I10 Essential (primary) hypertension (principal)

== ENCOUNTER 2020-06-30 14:58 | Emergency (ER) | payer MEDICARE, BC ==
--- NOTE | 2020-06-30 16:08 | REPVR ---
PROCEDURE INFORMATION: Exam: CT Head Without Contrast Exam date and time: 06/30/2020 3:45 PM Age: 80 years old Clinical indication: Injury or trauma; Fall; Blunt trauma (contusions or hematomas); Consciousness not specified TECHNIQUE: Imaging protocol: Computed tomography of the head without contrast. Radiation optimization: All CT scans at this facility use at least one of these dose optimization techniques: automated exposure control; mA and/or kV adjustment per patient size (includes targeted exams where dose is matched to clinical indication); or iterative reconstruction. COMPARISON: CT Head without contrast 11/25/2016 12:44 AM FINDINGS: Brain: The brain demonstrates diffuse volume loss. There is white matter hypodensity most consistent with chronic small vessel ischemic change. Cerebral ventricles: The ventricles and CSF spaces are proportionately enlarged. Bones/joints: No acute fracture. Paranasal sinuses: Visualized sinuses are unremarkable. No fluid levels. Mastoid air cells: Visualized mastoid air cells are well aerated. Vasculature: There is atherosclerotic disease involving the vertebral basilar system and cavernous ICAs. Soft tissues: Unremarkable. IMPRESSION: There is no sequela of acute intracranial trauma demonstrated. Electronically signed by: Neftali Foster On 06/30/2020 16:08:27 PM
--- NOTE | 2020-06-30 16:13 | REPVR ---
PROCEDURE INFORMATION: Exam: CT Cervical Spine Without Contrast Exam date and time: 06/30/2020 3:45 PM Age: 80 years old Clinical indication: Injury or trauma; Fall; Blunt trauma TECHNIQUE: Imaging protocol: Computed tomography images of the cervical spine without contrast. Radiation optimization: All CT scans at this facility use at least one of these dose optimization techniques: automated exposure control; mA and/or kV adjustment per patient size (includes targeted exams where dose is matched to clinical indication); or iterative reconstruction. COMPARISON: No relevant prior studies available. FINDINGS: Vertebrae: There is no subluxation or fracture. Discs/Spinal canal/Neural foramina: There is loss of disc space height throughout most focally at C5-C6 and C6-C7, related to degenerative disc disease. There is central stenosis most focally at C5-C6. Soft tissues: Unremarkable. Lungs: Lung apices are normal. Vasculature: There is atherosclerotic disease of carotid arteries not fully assessed. IMPRESSION: There is no subluxation or fracture. Electronically signed by: Neftali Fostre On 06/30/2020 16:13:48 PM
[2020-06-30 16:59] LABS: HEMATOCRIT 44.7 % (36.0-47.0); HEMOGLOBIN 14.9 g/dl (12.0-15.5); MEAN CORPUSCULAR HGB CONC 33.3 g/dl (32.0-36.5); PLATELET COUNT, AUTOMATED 352 10^3/uL (150-450); RED BLOOD COUNT 5.14 10^6/uL (4.00-5.40); WHITE BLOOD COUNT 11.1 10^3/uL (4.0-10.0)
--- NOTE | 2020-06-30 17:25 | REPVR ---
PROCEDURE INFORMATION: Exam: XR Bilateral Hips with Pelvis when Performed Exam date and time: 06/30/2020 5:04 PM Age: 80 years old Clinical indication: Hip pain; Bilateral; Additional info: Preop TECHNIQUE: Imaging protocol: XR bilateral hips with pelvis when performed. Views: 2 views. COMPARISON: No relevant prior studies available. FINDINGS: Bones/joints: Degenerative spondylosis lower lumbar spine. Degenerative arthropathy both hip joints. Soft tissues: Unremarkable. IMPRESSION: No acute findings. Electronically signed by: Trenton May On 06/30/2020 17:25:24 PM
--- NOTE | 2020-06-30 17:26 | REPVR ---
PROCEDURE INFORMATION: Exam: XR Chest, 1 View Exam date and time: 06/30/2020 5:04 PM Age: 80 years old Clinical indication: Pain; Other: Hip; Additional info: Preop TECHNIQUE: Imaging protocol: XR of the chest Views: 1 view. COMPARISON: CT ANGIO CHEST 11/25/2016 12:46 AM FINDINGS: Lungs: Unremarkable. No consolidation. Pleural space: Unremarkable. No pleural effusion. No pneumothorax. Heart/Mediastinum: Unremarkable. No cardiomegaly. Bones/joints: The spine demonstrates moderate degenerative changes. IMPRESSION: No acute findings. Electronically signed by: Trenton May On 06/30/2020 17:26:20 PM
[2020-06-30 17:30] LABS: ALBUMIN 3.7 GM/DL (3.2-5.2); ALT/SGPT 27 U/L (12-78); BILIRUBIN,TOTAL 0.5 MG/DL (0.2-1.0); BLOOD UREA NITROGEN 9 MG/DL (7-18); CALCIUM LEVEL 9.4 MG/DL (8.8-10.2); CARBON DIOXIDE LEVEL 27 MEQ/L (21-32); CHLORIDE LEVEL 103 MEQ/L (98-107); CK-MB VALUE MASS < 1.0 NG/ML (<3.6); CPK CREATINE PHOSPHOKINASE 73 U/L (26-192); CREATININE FOR GFR 1.16 MG/DL (0.55-1.30); GLOMERULAR FILTRATION RATE 47.6 (>32); GLUCOSE, FASTING 145 MG/DL (70-100); MB/CK RELATIVE INDEX 1.37 (< OR =4); POTASSIUM SERUM 3.6 MEQ/L (3.5-5.1); SODIUM LEVEL 140 MEQ/L (136-145); TOTAL PROTEIN 7.3 GM/DL (6.4-8.2); TROPONIN I < 0.02 NG/ML (< 0.10)
[2020-06-30 18:28] VITALS: BP 138/63
--- NOTE | 2020-07-01 20:43 | ECGEPIP ---
[facility] [place] - ED Test Date: 2020-06-30 Pat Name: JON FRANCO Department: Room: - Gender: Female [employer]: lr : 1940 Requested By: GAVIN Melendez Order Number: [id number] Reading MD: Jelena Fermin Measurements Intervals [place] Rate: 72 P: 83 ME: 209 QRS: -60 QRSD: 107 T: 79 QT: 417 QTc: 457 Interpretive Statements SINUS RHYTHM MARKED LEFT AXIS DEVIATION PATTERN CONSISTENT WITH PULMONARY DISEASE SEPTAL MYOCARDIAL INFARCTION, OF INDETERMINATE AGE NSTTW abnormalities NO PRIOR Electronically Signed on 07-01-2020 20:43:33 EDT by Jelena Fermin
== END 2020-06-30 18:45 | disposition home or self-care (01) ==
LOC: M ED 14:58 → EDBD 14:58 → M ED 18:45
DX: S79.911A Unspecified injury of right hip, initial encounter (principal); S79.912A Unspecified injury of left hip, initial encounter; S49.91XA Unspecified injury of right shoulder and upper arm, initial encounter; W01.0XXA Fall on same level from slipping, tripping and stumbling without subsequent striking against object, initial encounter; Y92.129 Unspecified place in nursing home as the place of occurrence of the external cause; Y93.9 Activity, unspecified; Y99.9 Unspecified external cause status; G30.9 Alzheimer's disease, unspecified; R94.31 Abnormal electrocardiogram [ECG] [EKG]; M47.816 Spondylosis without myelopathy or radiculopathy, lumbar region; M16.0 Bilateral primary osteoarthritis of hip; I11.9 Hypertensive heart disease without heart failure; E11.9 Type 2 diabetes mellitus without complications; Z87.891 Personal history of nicotine dependence; Z91.048 Other nonmedicinal substance allergy status; Z79.4 Long term (current) use of insulin; Z79.899 Other long term (current) drug therapy

== ENCOUNTER → 2020-07-03 | Outpatient (REF) | payer MEDICARE, BC ==
[2020-07-03 11:47] LABS: HEMATOCRIT 45.3 % (36.0-47.0); HEMOGLOBIN 14.3 g/dl (12.0-15.5); MEAN CORPUSCULAR HEMOGLOBIN 28.4 pg (27.0-33.0); MEAN CORPUSCULAR HGB CONC 31.6 g/dl (32.0-36.5); MEAN CORPUSCULAR VOLUME 90.1 fl (80.0-96.0); PLATELET COUNT, AUTOMATED 331 10^3/uL (150-450); RED BLOOD COUNT 5.03 10^6/uL (4.00-5.40); WHITE BLOOD COUNT 11.1 10^3/uL (4.0-10.0)
[2020-07-03 12:16] LABS: CALCIUM LEVEL 9.5 MG/DL (8.8-10.2); GLOMERULAR FILTRATION RATE 56.5 (>32); POTASSIUM SERUM 3.8 MEQ/L (3.5-5.1)
== END ==
PROVIDERS: ATTEND Family Medicine
DX: I10 Essential (primary) hypertension (principal)

== ENCOUNTER → 2020-07-05 | Outpatient (REF) | payer MEDICARE, BC ==
--- NOTE | 2020-07-05 14:43 | REPPI ---
INDICATION: S/P FALL PAIN HIP AND PELVIS ROOM 257-1 COMPARISON: None. TECHNIQUE: Single portable AP view of the right hip FINDINGS: Examination is limited by portable technique including underpenetration. Osteopenia and degenerative changes are noted. No obvious fracture through the proximal femur. Injury involving the visualized iliac bone or pubic rami cannot definitively be excluded IMPRESSION: Limited by portable technique. Visualized proximal femur appears intact. Underlying osteopenia and degenerative changes noted. Subtle injury to the remainder of the pelvis cannot be excluded. <Electronically signed by Vinicio Cook > 07/05/20 [id number]
--- NOTE | 2020-07-05 14:44 | REPPI ---
INDICATION: S/P FALL PAIN HIP AND PELVIS ROOM 257-1 COMPARISON: None. TECHNIQUE: Portable AP view of the pelvis. FINDINGS: Examination is limited by portable technique and underpenetration. Age-related osteopenia and degenerative changes noted. No obvious acute fracture or dislocation. IMPRESSION: Limited by underpenetration and portable technique. Osteopenia and degenerative changes. No obvious acute fracture identified. <Electronically signed by Vinicio Cook > 07/05/20 [id number]
== END ==
PROVIDERS: ATTEND Family Medicine
DX: M85.88 Other specified disorders of bone density and structure, other site (principal); M25.551 Pain in right hip

== ENCOUNTER → 2020-07-25 | Outpatient (REF) | payer MEDICARE, BC ==
[2020-07-25 09:49] LABS: CALCIUM LEVEL 9.8 MG/DL (8.8-10.2); CREATININE FOR GFR 0.95 MG/DL (0.55-1.30); POTASSIUM SERUM 4.2 MEQ/L (3.5-5.1)
== END ==
PROVIDERS: ATTEND Physician Assistant
DX: E11.9 Type 2 diabetes mellitus without complications (principal)

== ENCOUNTER → 2020-07-26 | Outpatient (REF) | PROVIDERS: ATTEND Internal Medicine | DX: Z20.828 Contact with and (suspected) exposure to other viral communicable diseases (principal) ==

== ENCOUNTER → 2020-08-01 | Outpatient (REF) | payer MEDICARE, BC ==
[2020-08-01 11:29] LABS: HEMATOCRIT 45.1 % (36.0-47.0); HEMOGLOBIN 14.4 g/dl (12.0-15.5); MEAN CORPUSCULAR HEMOGLOBIN 28.6 pg (27.0-33.0); MEAN CORPUSCULAR HGB CONC 31.9 g/dl (32.0-36.5); MEAN CORPUSCULAR VOLUME 89.5 fl (80.0-96.0); PLATELET COUNT, AUTOMATED 328 10^3/uL (150-450); RED BLOOD COUNT 5.04 10^6/uL (4.00-5.40); WHITE BLOOD COUNT 8.5 10^3/uL (4.0-10.0)
[2020-08-01 12:07] LABS: CALCIUM LEVEL 9.3 MG/DL (8.8-10.2); CREATININE FOR GFR 0.98 MG/DL (0.55-1.30); GLOMERULAR FILTRATION RATE 57.8 (>32); POTASSIUM SERUM 3.9 MEQ/L (3.5-5.1)
== END ==
PROVIDERS: ATTEND Family Medicine
DX: I10 Essential (primary) hypertension (principal)

== ENCOUNTER → 2020-08-02 | Outpatient (REF) | payer MEDICARE, BC | LOC: EDSTATUS 09-11 14:40 | PROVIDERS: ATTEND Internal Medicine | DX: Z20.828 Contact with and (suspected) exposure to other viral communicable diseases (principal) ==

== ENCOUNTER → 2020-08-08 | Outpatient (REF) | payer MEDICARE, BC | PROVIDERS: ATTEND Internal Medicine | DX: Z20.828 Contact with and (suspected) exposure to other viral communicable diseases (principal) ==

== ENCOUNTER → 2020-08-26 | Outpatient (REF) | payer MEDICARE, BC | PROVIDERS: ATTEND Internal Medicine | DX: Z20.828 Contact with and (suspected) exposure to other viral communicable diseases (principal) ==

== ENCOUNTER → 2020-08-28 | Outpatient (REF) | payer MEDICARE, BC ==
[2020-08-28 11:26] LABS: HEMATOCRIT 42.1 % (36.0-47.0); HEMOGLOBIN 13.6 g/dl (12.0-15.5); MEAN CORPUSCULAR HEMOGLOBIN 28.9 pg (27.0-33.0); MEAN CORPUSCULAR HGB CONC 32.3 g/dl (32.0-36.5); MEAN CORPUSCULAR VOLUME 89.6 fl (80.0-96.0); PLATELET COUNT, AUTOMATED 288 10^3/uL (150-450); WHITE BLOOD COUNT 8.4 10^3/uL (4.0-10.0)
[2020-08-28 11:58] LABS: BLOOD UREA NITROGEN 11 MG/DL (7-18); CALCIUM LEVEL 9.1 MG/DL (8.8-10.2); CARBON DIOXIDE LEVEL 28 MEQ/L (21-32); CHLORIDE LEVEL 103 MEQ/L (98-107); CREATININE FOR GFR 0.83 MG/DL (0.55-1.30); GLOMERULAR FILTRATION RATE > 60.0 (>32); GLUCOSE, FASTING 246 MG/DL (70-100); SODIUM LEVEL 139 MEQ/L (136-145)
== END ==
PROVIDERS: ATTEND Family Medicine
DX: E11.9 Type 2 diabetes mellitus without complications (principal); I10 Essential (primary) hypertension

== ENCOUNTER → 2020-08-30 | Outpatient (REF) | payer MEDICARE, BC | PROVIDERS: ATTEND Internal Medicine | DX: Z20.828 Contact with and (suspected) exposure to other viral communicable diseases (principal) ==

== ENCOUNTER → 2020-09-05 | Outpatient (REF) | payer MEDICARE, BC | LOC: M LAB REF 14:14 | PROVIDERS: ATTEND Dermatology | DX: L82.1 Other seborrheic keratosis (principal) ==

== ENCOUNTER → 2020-09-05 | Outpatient (REF) | payer MEDICARE, BC | PROVIDERS: ATTEND Internal Medicine | DX: Z11.59 Encounter for screening for other viral diseases (principal) ==

== ENCOUNTER → 2020-09-11 | Outpatient (REF) | PROVIDERS: ATTEND Internal Medicine | DX: Z20.828 Contact with and (suspected) exposure to other viral communicable diseases (principal) ==

== ENCOUNTER → 2020-09-17 | Outpatient (REF) | payer BC, MEDICARE | PROVIDERS: ATTEND Internal Medicine | DX: Z20.822 Contact with and (suspected) exposure to COVID-19 (principal) ==

== ENCOUNTER → 2020-09-21 | Outpatient (REF) | payer BC, MEDICARE | PROVIDERS: ATTEND Internal Medicine | DX: Z20.822 Contact with and (suspected) exposure to COVID-19 (principal) ==

== ENCOUNTER → 2020-09-26 | Outpatient (REF) | payer BC, MEDICARE | PROVIDERS: ATTEND Internal Medicine | DX: Z20.822 Contact with and (suspected) exposure to COVID-19 (principal) ==

== ENCOUNTER → 2020-09-28 | Outpatient (REF) | payer MEDICARE, BC ==
--- NOTE | 2020-09-28 16:16 | REPPI ---
INDICATION: CANT BEAR WEIGHT ON RIGHT LEG..S257-2 COMPARISON: Right hip 07/05/2020. TECHNIQUE: AP and lateral views right femur. FINDINGS: There is no evidence of acute fracture, dislocation, or intrinsic bone disease. IMPRESSION: No fracture or dislocation. <Electronically signed by Fahad Medina > 09/28/20 [id number]
--- NOTE | 2020-09-28 16:17 | REPPI ---
INDICATION: CANT BEAR WEIGHT ON RIGHT LEG COMPARISON: None. TECHNIQUE: AP and lateral right lower leg. FINDINGS: There is no evidence of acute fracture, dislocation, or intrinsic bone disease. IMPRESSION: No fracture or dislocation. <Electronically signed by Fahad Medina > 09/28/20 [id number]
--- NOTE | 2020-09-28 16:32 | REPPI ---
INDICATION: RIGHT FOOT XRAY CANT BEAR WEIGHT. COMPARISON: None. TECHNIQUE: AP and lateral views FINDINGS: The joint spaces are symmetric and relatively well maintained. There is no evidence of acute fracture or destructive osseous lesion on this limited two view exam.. There is chronic change seen involving the proximal phalanx of the 5th digit. There are small plantar and retrocalcaneal heel spurs. IMPRESSION: Negative limited two view exam. A trauma series consists of four views. If a fracture is of clinical concern then a four view series is recommended. <Electronically signed by Hong Mathis > 09/28/20 [id number]
== END ==
PROVIDERS: ATTEND Family Medicine
DX: M77.31 Calcaneal spur, right foot (principal); M79.604 Pain in right leg

== ENCOUNTER → 2020-10-03 | Outpatient (REF) | payer BC, MEDICARE | PROVIDERS: ATTEND Internal Medicine | DX: Z20.822 Contact with and (suspected) exposure to COVID-19 (principal) ==

== ENCOUNTER → 2020-10-10 | Outpatient (REF) | payer MEDICARE, BC | PROVIDERS: ATTEND Internal Medicine | DX: Z20.822 Contact with and (suspected) exposure to COVID-19 (principal) ==

== ENCOUNTER → 2020-10-17 | Outpatient (REF) | payer MEDICARE, BC | PROVIDERS: ATTEND Internal Medicine | DX: Z20.822 Contact with and (suspected) exposure to COVID-19 (principal) ==

== ENCOUNTER → 2020-10-24 | Outpatient (REF) | payer MEDICARE, BC | PROVIDERS: ATTEND Internal Medicine | DX: Z20.822 Contact with and (suspected) exposure to COVID-19 (principal) ==

== ENCOUNTER → 2020-10-31 | Outpatient (REF) | payer MEDICARE, BC ==
[2020-10-31 11:31] LABS: HEMATOCRIT 42.7 % (36.0-47.0); HEMOGLOBIN 13.7 g/dl (12.0-15.5); MEAN CORPUSCULAR HEMOGLOBIN 29.4 pg (27.0-33.0); MEAN CORPUSCULAR HGB CONC 32.1 g/dl (32.0-36.5); MEAN CORPUSCULAR VOLUME 91.6 fl (80.0-96.0); PLATELET COUNT, AUTOMATED 345 10^3/uL (150-450); RED BLOOD COUNT 4.66 10^6/uL (4.00-5.40); WHITE BLOOD COUNT 13.5 10^3/uL (4.0-10.0)
[2020-10-31 11:53] LABS: BLOOD UREA NITROGEN 12 MG/DL (7-18); CALCIUM LEVEL 9.5 MG/DL (8.8-10.2); CARBON DIOXIDE LEVEL 28 MEQ/L (21-32); CHLORIDE LEVEL 103 MEQ/L (98-107); CREATININE FOR GFR 0.88 MG/DL (0.55-1.30); GLOMERULAR FILTRATION RATE > 60.0 (>32); GLUCOSE, FASTING 177 MG/DL (70-100); POTASSIUM SERUM 3.9 MEQ/L (3.5-5.1); SODIUM LEVEL 139 MEQ/L (136-145)
== END ==
PROVIDERS: ATTEND Internal Medicine
DX: E11.9 Type 2 diabetes mellitus without complications (principal); Z20.822 Contact with and (suspected) exposure to COVID-19
CPT/HCPCS: 36415; 80048; 85027; U0003

== ENCOUNTER → 2020-11-01 | Outpatient (REF) | payer MEDICARE, BC ==
[2020-11-01 09:27] LABS: HEMATOCRIT 40.5 % (36.0-47.0); MEAN CORPUSCULAR HEMOGLOBIN 29.3 pg (27.0-33.0); MEAN CORPUSCULAR HGB CONC 32.1 g/dl (32.0-36.5); MEAN CORPUSCULAR VOLUME 91.4 fl (80.0-96.0); PLATELET COUNT, AUTOMATED 309 10^3/uL (150-450); RED BLOOD COUNT 4.43 10^6/uL (4.00-5.40); WHITE BLOOD COUNT 9.5 10^3/uL (4.0-10.0)
== END ==
PROVIDERS: ATTEND Family Medicine
DX: D72.829 Elevated white blood cell count, unspecified (principal)

== ENCOUNTER → 2020-11-07 | Outpatient (REF) | payer MEDICARE, BC | PROVIDERS: ATTEND Internal Medicine | DX: Z20.822 Contact with and (suspected) exposure to COVID-19 (principal) ==

== ENCOUNTER → 2020-11-14 | Outpatient (REF) | payer MEDICARE, BC | PROVIDERS: ATTEND Internal Medicine | DX: Z20.822 Contact with and (suspected) exposure to COVID-19 (principal) ==

== ENCOUNTER → 2020-11-21 | Outpatient (REF) | payer MEDICARE, BC | PROVIDERS: ATTEND Internal Medicine | DX: Z11.52 Encounter for screening for COVID-19 (principal) ==

== ENCOUNTER → 2020-11-28 | Outpatient (REF) | payer MEDICARE, BC ==
[2020-11-28 10:15] LABS: HEMATOCRIT 42.8 % (36.0-47.0); HEMOGLOBIN 13.9 g/dl (12.0-15.5); MEAN CORPUSCULAR HEMOGLOBIN 29.3 pg (27.0-33.0); MEAN CORPUSCULAR HGB CONC 32.5 g/dl (32.0-36.5); MEAN CORPUSCULAR VOLUME 90.1 fl (80.0-96.0); PLATELET COUNT, AUTOMATED 349 10^3/uL (150-450); RED BLOOD COUNT 4.75 10^6/uL (4.00-5.40); WHITE BLOOD COUNT 15.6 10^3/uL (4.0-10.0)
[2020-11-28 10:43] LABS: HEMOGLOBIN A1c 7.5 %
[2020-11-28 10:49] LABS: BLOOD UREA NITROGEN 12 MG/DL (7-18); CALCIUM LEVEL 9.9 MG/DL (8.8-10.2); CARBON DIOXIDE LEVEL 30 MEQ/L (21-32); CHLORIDE LEVEL 102 MEQ/L (98-107); CREATININE FOR GFR 0.81 MG/DL (0.55-1.30); GLOMERULAR FILTRATION RATE > 60.0 (>32); GLUCOSE, FASTING 206 MG/DL (70-100); POTASSIUM SERUM 3.9 MEQ/L (3.5-5.1); SODIUM LEVEL 138 MEQ/L (136-145)
== END ==
PROVIDERS: ATTEND Family Medicine
DX: I10 Essential (primary) hypertension (principal); Z79.899 Other long term (current) drug therapy

== ENCOUNTER → 2020-11-29 | Outpatient (REF) | payer MEDICARE, BC ==
[2020-11-29 17:47] LABS: HEMATOCRIT 42.6 % (36.0-47.0); HEMOGLOBIN 13.8 g/dl (12.0-15.5); MEAN CORPUSCULAR HEMOGLOBIN 29.1 pg (27.0-33.0); MEAN CORPUSCULAR HGB CONC 32.4 g/dl (32.0-36.5); MEAN CORPUSCULAR VOLUME 89.9 fl (80.0-96.0); PLATELET COUNT, AUTOMATED 354 10^3/uL (150-450); RED BLOOD COUNT 4.74 10^6/uL (4.00-5.40); WHITE BLOOD COUNT 13.6 10^3/uL (4.0-10.0)
== END ==
PROVIDERS: ATTEND Physician Assistant
DX: D72.829 Elevated white blood cell count, unspecified (principal)

== ENCOUNTER → 2020-11-30 | Outpatient (REF) ==
[2020-12-01 00:20] LABS: APPEARANCE, URINE HAZY (CLEAR); BACTERIA, URINE AUTO NEGATIVE (NEGATIVE); BILIRUBIN, URINE AUTO NEGATIVE (NEGATIVE); BLOOD, URINE BLOOD 1+ (NEGATIVE); COLOR, URINE YELLOW (YELLOW); GLUCOSE, URINE (UA) AUTO NEGATIVE (NEGATIVE); KETONE, URINE AUTO NEGATIVE (NEGATIVE); LEUKOCYTE ESTERASE, URINE AUTO 3+ (NEGATIVE); NITRITE, URINE AUTO NEGATIVE (NEGATIVE); PROTEIN, URINE AUTO NEGATIVE (NEGATIVE); RBC, URINE AUTO 4 /HPF (0-3); SQUAMOUS EPITHELIAL CELL UR AU 0 /HPF (0-6); UROBILINOGEN, URINE AUTO 0.2 mg/dL (0.0-2.0); WBC, URINE AUTO 12 /HPF (0-3)
== END ==
PROVIDERS: ATTEND Family Medicine
DX: N39.0 Urinary tract infection, site not specified (principal)

== ENCOUNTER → 2020-12-14 | Outpatient (REF) | payer MEDICARE, BC ==
[2020-12-14 22:19] LABS: INFLUENZA A AMPLIFICATION NEGATIVE (NEGATIVE); INFLUENZA B AMPLIFICATION NEGATIVE (NEGATIVE)
== END ==
PROVIDERS: ATTEND Internal Medicine
DX: Z11.59 Encounter for screening for other viral diseases (principal)

== ENCOUNTER → 2020-12-25 | Outpatient (REF) | payer MEDICARE, BC | PROVIDERS: ATTEND Internal Medicine | DX: Z20.822 Contact with and (suspected) exposure to COVID-19 (principal) ==

== ENCOUNTER → 2021-01-01 | Outpatient (REF) | payer MEDICARE, BC ==
[2021-01-01 11:55] LABS: HEMATOCRIT 40.7 % (36.0-47.0); HEMOGLOBIN 13.3 g/dl (12.0-15.5); MEAN CORPUSCULAR HGB CONC 32.7 g/dl (32.0-36.5); MEAN CORPUSCULAR VOLUME 88.7 fl (80.0-96.0); PLATELET COUNT, AUTOMATED 313 10^3/uL (150-450); RED BLOOD COUNT 4.59 10^6/uL (4.00-5.40); WHITE BLOOD COUNT 9.8 10^3/uL (4.0-10.0)
[2021-01-01 12:21] LABS: BLOOD UREA NITROGEN 9 MG/DL (7-18); CALCIUM LEVEL 9.3 MG/DL (8.8-10.2); CARBON DIOXIDE LEVEL 25 MEQ/L (21-32); CHLORIDE LEVEL 102 MEQ/L (98-107); CREATININE FOR GFR 0.75 MG/DL (0.55-1.30); GLOMERULAR FILTRATION RATE > 60.0 (>32); GLUCOSE, FASTING 181 MG/DL (70-100); POTASSIUM SERUM 3.7 MEQ/L (3.5-5.1); SODIUM LEVEL 138 MEQ/L (136-145)
== END ==
PROVIDERS: ATTEND Internal Medicine
DX: E11.9 Type 2 diabetes mellitus without complications (principal); Z20.822 Contact with and (suspected) exposure to COVID-19
CPT/HCPCS: 36415; 80048; 85027; U0003

== ENCOUNTER → 2021-01-30 | Outpatient (REF) | payer MEDICARE, BC ==
[2021-01-30 11:10] LABS: HEMATOCRIT 42.3 % (36.0-47.0); HEMOGLOBIN 13.7 g/dl (12.0-15.5); MEAN CORPUSCULAR HEMOGLOBIN 29.5 pg (27.0-33.0); MEAN CORPUSCULAR HGB CONC 32.4 g/dl (32.0-36.5); MEAN CORPUSCULAR VOLUME 91.2 fl (80.0-96.0); PLATELET COUNT, AUTOMATED 342 10^3/uL (150-450); RED BLOOD COUNT 4.64 10^6/uL (4.00-5.40)
[2021-01-30 11:38] LABS: BLOOD UREA NITROGEN 12 MG/DL (7-18); CALCIUM LEVEL 9.1 MG/DL (8.8-10.2); CARBON DIOXIDE LEVEL 26 MEQ/L (21-32); CHLORIDE LEVEL 104 MEQ/L (98-107); CREATININE FOR GFR 0.81 MG/DL (0.55-1.30); GLOMERULAR FILTRATION RATE > 60.0 (>32); GLUCOSE, FASTING 170 MG/DL (70-100); POTASSIUM SERUM 3.8 MEQ/L (3.5-5.1); SODIUM LEVEL 138 MEQ/L (136-145)
== END ==
PROVIDERS: ATTEND Family Medicine
DX: E11.9 Type 2 diabetes mellitus without complications (principal)

== ENCOUNTER → 2021-01-31 | Outpatient (REF) | payer MEDICARE, BC ==
[2021-01-31 16:51] LABS: HEMATOCRIT 44.3 % (36.0-47.0); HEMOGLOBIN 14.4 g/dl (12.0-15.5); MEAN CORPUSCULAR HEMOGLOBIN 29.5 pg (27.0-33.0); MEAN CORPUSCULAR HGB CONC 32.5 g/dl (32.0-36.5); MEAN CORPUSCULAR VOLUME 90.8 fl (80.0-96.0); PLATELET COUNT, AUTOMATED 377 10^3/uL (150-450); RED BLOOD COUNT 4.88 10^6/uL (4.00-5.40); WHITE BLOOD COUNT 11.8 10^3/uL (4.0-10.0)
[2021-01-31 17:16] LABS: BLOOD UREA NITROGEN 13 MG/DL (7-18); CALCIUM LEVEL 8.6 MG/DL (8.8-10.2); CARBON DIOXIDE LEVEL 26 MEQ/L (21-32); CHLORIDE LEVEL 101 MEQ/L (98-107); CREATININE FOR GFR 0.89 MG/DL (0.55-1.30); GLOMERULAR FILTRATION RATE > 60.0 (>32); GLUCOSE, FASTING 225 MG/DL (70-100); POTASSIUM SERUM 3.6 MEQ/L (3.5-5.1); SODIUM LEVEL 137 MEQ/L (136-145)
== END ==
PROVIDERS: ATTEND Physician Assistant
DX: R41.0 Disorientation, unspecified (principal)

== ENCOUNTER → 2021-02-07 | Outpatient (REF) | payer MEDICARE, BC ==
--- NOTE | 2021-02-07 15:31 | REPPI ---
INDICATION: R/O INJURY ROOM 257-1 COMPARISON: None. TECHNIQUE: AP, lateral, bilateral oblique views right ankle. FINDINGS: Examination is limited by age-related osteopenia and arthritic degenerative changes at the medial and lateral malleoli. The ankle mortise appears intact. There is mild generalized soft tissue swelling. No definite acute fracture or dislocation is appreciated. IMPRESSION: Limited by osteopenia and degenerative changes. No obvious acute fracture or dislocation. <Electronically signed by Vinicio Cook > 02/07/21 [id number]
== END ==
PROVIDERS: ATTEND Family Medicine
DX: M79.89 Other specified soft tissue disorders (principal); M85.871 Other specified disorders of bone density and structure, right ankle and foot; M19.071 Primary osteoarthritis, right ankle and foot

== ENCOUNTER → 2021-03-28 | Outpatient (REF) | payer MEDICARE, BC ==
[~2021-03-28] MED LIST changes: +DONE-1 PO; -DONETAB6 PO
[2021-03-28 11:45] LABS: HEMOGLOBIN A1c 7.4 %
== END ==
PROVIDERS: ATTEND Family Medicine
DX: E11.9 Type 2 diabetes mellitus without complications (principal)

== ENCOUNTER → 2021-05-06 | Outpatient (REF) | payer MEDICARE, BC ==
[~2021-05-06] MED LIST changes: -DONE-1 PO; +DONETAB6 PO
[2021-05-06 12:38] LABS: BLOOD UREA NITROGEN 14 MG/DL (7-18); CALCIUM LEVEL 8.7 MG/DL (8.8-10.2); CARBON DIOXIDE LEVEL 24 MEQ/L (21-32); CHLORIDE LEVEL 104 MEQ/L (98-107); CREATININE FOR GFR 0.82 MG/DL (0.55-1.30); GLOMERULAR FILTRATION RATE > 60.0 (>32); GLUCOSE, FASTING 205 MG/DL (70-100); POTASSIUM SERUM 3.4 MEQ/L (3.5-5.1); SODIUM LEVEL 139 MEQ/L (136-145)
== END ==
PROVIDERS: ATTEND Family Medicine
DX: I10 Essential (primary) hypertension (principal)

== ENCOUNTER → 2021-05-15 | Outpatient (REF) | payer MEDICARE, BC ==
[~2021-05-15] MED LIST changes: +DONE-1 PO; -DONETAB6 PO
[2021-05-15 11:02] LABS: HEMATOCRIT 41.7 % (36.0-47.0); HEMOGLOBIN 13.5 g/dl (12.0-15.5); MEAN CORPUSCULAR HEMOGLOBIN 29.9 pg (27.0-33.0); MEAN CORPUSCULAR HGB CONC 32.4 g/dl (32.0-36.5); MEAN CORPUSCULAR VOLUME 92.5 fl (80.0-96.0); PLATELET COUNT, AUTOMATED 322 10^3/uL (150-450); RED BLOOD COUNT 4.51 10^6/uL (4.00-5.40)
[2021-05-15 11:48] LABS: BLOOD UREA NITROGEN 12 MG/DL (7-18); CALCIUM LEVEL 9.3 MG/DL (8.8-10.2); CARBON DIOXIDE LEVEL 24 MEQ/L (21-32); CHLORIDE LEVEL 106 MEQ/L (98-107); CHOLESTEROL LEVEL 112 MG/DL (<200); CHOLESTEROL RISK RATIO 2.604 (<5); CREATININE FOR GFR 0.81 MG/DL (0.55-1.30); GLOMERULAR FILTRATION RATE > 60.0 (>32); GLUCOSE, FASTING 143 MG/DL (70-100); HDL CHOLESTEROL 43 MG/DL (>40); LDL CHOLESTEROL 45 MG/DL (<100); NON-HDL-C 69 MG/DL; POTASSIUM SERUM 4.1 MEQ/L (3.5-5.1); SODIUM LEVEL 141 MEQ/L (136-145); TRIGLYCERIDES LEVEL 122 MG/DL (<150)
== END ==
PROVIDERS: ATTEND Family Medicine
DX: E11.9 Type 2 diabetes mellitus without complications (principal)

== ENCOUNTER → 2021-05-31 | Outpatient (REF) | payer MEDICARE, BC ==
[~2021-05-31] MED LIST changes: -DONE-1 PO; +DONETAB6 PO
[2021-05-31 12:33] LABS: CHOLESTEROL RISK RATIO 2.386 (<5)
== END ==
PROVIDERS: ATTEND Family Medicine
DX: E11.9 Type 2 diabetes mellitus without complications (principal)

== ENCOUNTER → 2021-07-29 | Outpatient (REF) | payer MEDICARE, BC ==
[2021-07-29 18:03] LABS: BASO # 0.1 10^3/uL (0.0-0.2); BASO % 0.7 % (0.0-1.0); EOS # 0.2 10^3/uL (0.0-0.5); HEMATOCRIT 41.8 % (36.0-47.0); HEMOGLOBIN 13.4 g/dl (12.0-15.5); LYMPH # 3.4 10^3/uL (1.5-5.0); LYMPH % 29.6 % (24.0-44.0); MEAN CORPUSCULAR HEMOGLOBIN 29.4 pg (27.0-33.0); MEAN CORPUSCULAR HGB CONC 32.1 g/dl (32.0-36.5); MEAN CORPUSCULAR VOLUME 91.7 fl (80.0-96.0); MONO # 1.2 10^3/uL (0.0-0.8); NEUTROPHILS # 6.6 10^3/uL (1.5-8.5); NEUTROPHILS % 57.4 % (36.0-66.0); PLATELET COUNT, AUTOMATED 334 10^3/uL (150-450); RED BLOOD COUNT 4.56 10^6/uL (4.00-5.40); WHITE BLOOD COUNT 11.5 10^3/uL (4.0-10.0)
[2021-07-29 19:32] LABS: ALBUMIN 3.5 GM/DL (3.2-5.2); ALT/SGPT 19 U/L (12-78); BILIRUBIN,TOTAL 0.4 MG/DL (0.2-1.0); BLOOD UREA NITROGEN 16 MG/DL (7-18); CALCIUM LEVEL 9.4 MG/DL (8.8-10.2); CARBON DIOXIDE LEVEL 29 MEQ/L (21-32); CHLORIDE LEVEL 104 MEQ/L (98-107); CREATININE FOR GFR 0.83 MG/DL (0.55-1.30); GLOMERULAR FILTRATION RATE > 60.0 (>32); GLUCOSE, FASTING 202 MG/DL (70-100); POTASSIUM SERUM 4.6 MEQ/L (3.5-5.1); SODIUM LEVEL 139 MEQ/L (136-145); TOTAL PROTEIN 7.1 GM/DL (6.4-8.2)
== END ==
PROVIDERS: ATTEND Family Medicine
DX: F03.90 Unspecified dementia, unspecified severity, without behavioral disturbance, psychotic disturbance, mood disturbance, and anxiety (principal); R41.0 Disorientation, unspecified

== ENCOUNTER → 2021-07-29 | Outpatient (REF) | payer MEDICARE, BC | PROVIDERS: ATTEND Family Medicine | DX: R41.0 Disorientation, unspecified (principal); R32 Unspecified urinary incontinence ==

== ENCOUNTER → 2021-08-14 | Outpatient (REF) | payer MEDICARE, BC ==
[2021-08-14 11:12] LABS: HEMATOCRIT 40.3 % (36.0-47.0); HEMOGLOBIN 13.1 g/dl (12.0-15.5); MEAN CORPUSCULAR HEMOGLOBIN 29.8 pg (27.0-33.0); MEAN CORPUSCULAR HGB CONC 32.5 g/dl (32.0-36.5); MEAN CORPUSCULAR VOLUME 91.6 fl (80.0-96.0); PLATELET COUNT, AUTOMATED 356 10^3/uL (150-450); WHITE BLOOD COUNT 11.5 10^3/uL (4.0-10.0)
[2021-08-14 11:31] LABS: HEMOGLOBIN A1c 6.9 %
[2021-08-14 11:42] LABS: BLOOD UREA NITROGEN 12 MG/DL (7-18); CALCIUM LEVEL 8.9 MG/DL (8.8-10.2); CARBON DIOXIDE LEVEL 26 MEQ/L (21-32); CHLORIDE LEVEL 104 MEQ/L (98-107); CREATININE FOR GFR 0.82 MG/DL (0.55-1.30); GLOMERULAR FILTRATION RATE > 60.0 (>32); GLUCOSE, FASTING 202 MG/DL (70-100); POTASSIUM SERUM 3.8 MEQ/L (3.5-5.1); SODIUM LEVEL 139 MEQ/L (136-145)
== END ==
PROVIDERS: ATTEND Family Medicine
DX: E11.9 Type 2 diabetes mellitus without complications (principal)

== ENCOUNTER → 2021-11-01 | Outpatient (REF) | payer MEDICARE, BC, MEDICAID ==
[~2021-11-01] MED LIST changes: +DONE-1 PO; -DONETAB6 PO
== END ==
PROVIDERS: ATTEND Family Medicine
DX: R05.9 Cough, unspecified (principal)

== ENCOUNTER → 2021-11-01 | Outpatient (CLI) | payer MEDICARE, BC, MEDICAID | PROVIDERS: ATTEND Family Medicine | DX: R05.9 Cough, unspecified (principal) ==

== ENCOUNTER → 2021-11-06 | Outpatient (CLI) | payer MEDICARE, BC, MEDICAID | PROVIDERS: ATTEND Family Medicine | DX: R91.8 Other nonspecific abnormal finding of lung field (principal) ==

== ENCOUNTER → 2021-12-03 | Outpatient (CLI) | payer MEDICARE, BC, MEDICAID | LOC: M RAD 09:33 | PROVIDERS: ATTEND Family Medicine | DX: M43.06 Spondylolysis, lumbar region (principal) ==

== ENCOUNTER → 2021-12-03 | Outpatient (REF) | payer MEDICARE, BC, MEDICAID | PROVIDERS: ATTEND Family Medicine | DX: M54.9 Dorsalgia, unspecified (principal); Z53.9 Procedure and treatment not carried out, unspecified reason ==

== ENCOUNTER → 2021-12-04 | Outpatient (REF) | payer MEDICARE, BC, MEDICAID ==
[2021-12-04 10:21] LABS: BASO # 0.1 10^3/uL (0.0-0.2); BASO % 0.6 % (0.0-1.0); EOS # 0.2 10^3/uL (0.0-0.5); EOS % 1.8 % (0.0-3.0); HEMATOCRIT 42.7 % (36.0-47.0); HEMOGLOBIN 13.7 g/dl (12.0-15.5); LYMPH # 2.6 10^3/uL (1.5-5.0); LYMPH % 23.4 % (24.0-44.0); MEAN CORPUSCULAR HEMOGLOBIN 29.6 pg (27.0-33.0); MEAN CORPUSCULAR HGB CONC 32.1 g/dl (32.0-36.5); MEAN CORPUSCULAR VOLUME 92.2 fl (80.0-96.0); MONO % 9.3 % (2.0-8.0); NEUTROPHILS # 7.2 10^3/uL (1.5-8.5); NEUTROPHILS % 64.5 % (36.0-66.0); PLATELET COUNT, AUTOMATED 328 10^3/uL (150-450); RED BLOOD COUNT 4.63 10^6/uL (4.00-5.40); WHITE BLOOD COUNT 11.2 10^3/uL (4.0-10.0)
[2021-12-04 10:48] LABS: BLOOD UREA NITROGEN 10 MG/DL (7-18); CALCIUM LEVEL 9.7 MG/DL (8.8-10.2); CARBON DIOXIDE LEVEL 31 MEQ/L (21-32); CHLORIDE LEVEL 104 MEQ/L (98-107); CREATININE FOR GFR 0.83 MG/DL (0.55-1.30); GLOMERULAR FILTRATION RATE > 60.0 (>32); GLUCOSE, FASTING 221 MG/DL (70-100); POTASSIUM SERUM 4.4 MEQ/L (3.5-5.1); SODIUM LEVEL 139 MEQ/L (136-145)
== END ==
PROVIDERS: ATTEND Physician Assistant
DX: E11.9 Type 2 diabetes mellitus without complications (principal)

== ENCOUNTER → 2022-02-26 | Outpatient (REF) | payer MEDICARE, BC, MEDICAID ==
[2022-02-26 10:58] LABS: HEMATOCRIT 39.5 % (36.0-47.0); MEAN CORPUSCULAR HEMOGLOBIN 30.7 pg (27.0-33.0); MEAN CORPUSCULAR HGB CONC 32.9 g/dl (32.0-36.5); MEAN CORPUSCULAR VOLUME 93.2 fl (80.0-96.0); PLATELET COUNT, AUTOMATED 350 10^3/uL (150-450); RED BLOOD COUNT 4.24 10^6/uL (4.00-5.40); WHITE BLOOD COUNT 12.7 10^3/uL (4.0-10.0)
[2022-02-26 11:20] LABS: HEMOGLOBIN A1c 6.6 %
[2022-02-26 11:21] LABS: BLOOD UREA NITROGEN 13 MG/DL (7-18); CALCIUM LEVEL 9.9 MG/DL (8.8-10.2); CARBON DIOXIDE LEVEL 28 MEQ/L (21-32); CHLORIDE LEVEL 106 MEQ/L (98-107); CREATININE FOR GFR 0.87 MG/DL (0.55-1.30); GLOMERULAR FILTRATION RATE > 60.0 (>32); GLUCOSE, FASTING 123 MG/DL (70-100); POTASSIUM SERUM 4.6 MEQ/L (3.5-5.1); SODIUM LEVEL 141 MEQ/L (136-145)
== END ==
PROVIDERS: ATTEND Family Medicine
DX: E11.9 Type 2 diabetes mellitus without complications (principal)

== ENCOUNTER → 2022-03-12 | Outpatient (CLI) | payer MEDICARE, BC, MEDICAID | PROVIDERS: ATTEND Family Medicine | DX: K30 Functional dyspepsia (principal) ==

== ENCOUNTER 2022-03-30 09:03 | Emergency (ER) | payer MEDICARE, MEDICAID ==
[~2022-03-30] VITALS: Ht 175.3 cm; Wt 80.0 kg
[2022-03-30 10:50] LABS: BLOOD UREA NITROGEN 13 MG/DL (7-18); CALCIUM LEVEL 8.5 MG/DL (8.8-10.2); CARBON DIOXIDE LEVEL 25 MEQ/L (21-32); CHLORIDE LEVEL 111 MEQ/L (98-107); CREATININE FOR GFR 0.84 MG/DL (0.55-1.30); GLOMERULAR FILTRATION RATE > 60.0 (>32); GLUCOSE, FASTING 75 MG/DL (70-100); POTASSIUM SERUM 4.4 MEQ/L (3.5-5.1); SODIUM LEVEL 143 MEQ/L (136-145)
[2022-03-30 11:53] VITALS: BP 148/74
== END 2022-03-30 11:57 | disposition home or self-care (01) ==
LOC: EDBD 09:03 → M ED 09:03
DX: G30.9 Alzheimer's disease, unspecified (principal); R51.9 Headache, unspecified; I10 Essential (primary) hypertension; Z86.79 Personal history of other diseases of the circulatory system; Z91.048 Other nonmedicinal substance allergy status; Z79.899 Other long term (current) drug therapy

== ENCOUNTER → 2022-04-09 | Outpatient (CLI) | payer MEDICARE, MEDICAID ==
[~2022-04-09] MED LIST changes: +E-Z-GAS II EFFERVESCENT PACKET (SODIUM BICARB./CITRIC ACID/SIMETHICONE) As Ordered ONE; +E-Z-HD 98% w/w 340GM SUSP BTL As Ordered ONE; +E-Z-PAQUE 96% w/w SUSP 176GM BTL As Ordered ONE
== END ==
LOC: M RAD 09:17
PROVIDERS: ATTEND Physician Assistant
DX: R14.2 Eructation (principal)

== ENCOUNTER → 2022-05-12 | Outpatient (CLI) | payer MEDICARE, MEDICAID ==
[~2022-05-12] MED LIST changes: +BARIUM SULFATE 700 MG TABLET (E-Z-DISK) As Ordered ONE; -E-Z-GAS II EFFERVESCENT PACKET (SODIUM BICARB./CITRIC ACID/SIMETHICONE) As Ordered ONE; -E-Z-HD 98% w/w 340GM SUSP BTL As Ordered ONE; +VARIBAR NECTAR 40% w/v 240ML SUSP BTL As Ordered ONE; +VARIBAR PUDDING 40% w/v 230ML TUBE As Ordered ONE
== END ==
LOC: M RAD 10:32
PROVIDERS: ATTEND Family Medicine
DX: R13.10 Dysphagia, unspecified (principal)

== ENCOUNTER → 2022-05-28 | Outpatient (REF) | payer MEDICARE, MEDICAID ==
[~2022-05-28] MED LIST changes: -BARIUM SULFATE 700 MG TABLET (E-Z-DISK) As Ordered ONE; -E-Z-PAQUE 96% w/w SUSP 176GM BTL As Ordered ONE; -VARIBAR NECTAR 40% w/v 240ML SUSP BTL As Ordered ONE; -VARIBAR PUDDING 40% w/v 230ML TUBE As Ordered ONE
[2022-05-28 10:49] LABS: HEMATOCRIT 41.5 % (36.0-47.0); HEMOGLOBIN 13.6 g/dl (12.0-15.5); MEAN CORPUSCULAR HEMOGLOBIN 30.4 pg (27.0-33.0); MEAN CORPUSCULAR HGB CONC 32.8 g/dl (32.0-36.5); MEAN CORPUSCULAR VOLUME 92.8 fl (80.0-96.0); PLATELET COUNT, AUTOMATED 333 10^3/uL (150-450); RED BLOOD COUNT 4.47 10^6/uL (4.00-5.40); WHITE BLOOD COUNT 10.5 10^3/uL (4.0-10.0)
[2022-05-28 11:29] LABS: BLOOD UREA NITROGEN 13 MG/DL (7-18); CALCIUM LEVEL 8.9 MG/DL (8.8-10.2); CARBON DIOXIDE LEVEL 27 MEQ/L (21-32); CHLORIDE LEVEL 104 MEQ/L (98-107); CHOLESTEROL LEVEL 103 MG/DL (<200); CREATININE FOR GFR 0.86 MG/DL (0.55-1.30); GLOMERULAR FILTRATION RATE > 60.0 (>32); GLUCOSE, FASTING 122 MG/DL (70-100); HDL CHOLESTEROL 44 MG/DL (>40); LDL CHOLESTEROL 39 MG/DL (<100); NON-HDL-C 59 MG/DL; POTASSIUM SERUM 3.5 MEQ/L (3.5-5.1); SODIUM LEVEL 139 MEQ/L (136-145); TRIGLYCERIDES LEVEL 99 MG/DL (<150)
[2022-05-28 11:57] LABS: HEMOGLOBIN A1c 6.3 %
== END ==
PROVIDERS: ATTEND Family Medicine
DX: E11.9 Type 2 diabetes mellitus without complications (principal)

== ENCOUNTER → 2022-08-27 | Outpatient (REF) | payer MEDICARE, MEDICAID, BC ==
[2022-08-27 10:26] LABS: HEMATOCRIT 40.2 % (36.0-47.0); HEMOGLOBIN 12.7 g/dl (12.0-15.5); MEAN CORPUSCULAR HEMOGLOBIN 30.2 pg (27.0-33.0); MEAN CORPUSCULAR HGB CONC 31.6 g/dl (32.0-36.5); MEAN CORPUSCULAR VOLUME 95.7 fl (80.0-96.0); PLATELET COUNT, AUTOMATED 313 10^3/uL (150-450); WHITE BLOOD COUNT 9.6 10^3/uL (4.0-10.0)
[2022-08-27 10:58] LABS: HEMOGLOBIN A1c 5.6 % (4.0-6.0)
[2022-08-27 11:17] LABS: BLOOD UREA NITROGEN 13 MG/DL (9-23); CALCIUM LEVEL 9.6 MG/DL (8.3-10.6); CARBON DIOXIDE LEVEL 29 MMOL/L (20-31); CHLORIDE LEVEL 103 MMOL/L (98-107); CREATININE FOR GFR 0.74 MG/DL (0.55-1.30); GLOMERULAR FILTRATION RATE > 60.0 (>32); GLUCOSE, FASTING 158 MG/DL (74-106); POTASSIUM SERUM 4.4 MMOL/L (3.5-5.1); SODIUM LEVEL 139 MMOL/L (136-145)
== END ==
PROVIDERS: ATTEND Family Medicine
DX: E11.9 Type 2 diabetes mellitus without complications (principal)

== ENCOUNTER 2022-09-01 18:10 | Emergency (ER) | payer MEDICARE, MEDICAID ==
[~2022-09-01] VITALS: Ht 162.6 cm; Wt 70.0 kg
[2022-09-01] MEDS ORDERED: LIDOCAINE 1% MDV 20ML VIAL SC ONE (19:25)
[2022-09-01 19:50] LABS: BASO # 0.1 10^3/uL (0.0-0.2); BASO % 0.7 % (0.0-1.0); EOS # 0.3 10^3/uL (0.0-0.5); EOS % 2.4 % (0.0-3.0); HEMATOCRIT 39.1 % (36.0-47.0); HEMOGLOBIN 13.1 g/dl (12.0-15.5); LYMPH # 2.6 10^3/uL (1.5-5.0); LYMPH % 21.1 % (24.0-44.0); MEAN CORPUSCULAR HEMOGLOBIN 31.2 pg (27.0-33.0); MEAN CORPUSCULAR HGB CONC 33.5 g/dl (32.0-36.5); MEAN CORPUSCULAR VOLUME 93.1 fl (80.0-96.0); MONO # 1.1 10^3/uL (0.0-0.8); MONO % 9.1 % (2.0-8.0); NEUTROPHILS # 8.1 10^3/uL (1.5-8.5); NEUTROPHILS % 66.3 % (36.0-66.0); PLATELET COUNT, AUTOMATED 338 10^3/uL (150-450); WHITE BLOOD COUNT 12.2 10^3/uL (4.0-10.0)
[2022-09-01 20:17] LABS: BLOOD UREA NITROGEN 18 MG/DL (9-23); CALCIUM LEVEL 8.8 MG/DL (8.3-10.6); CARBON DIOXIDE LEVEL 26 MMOL/L (20-31); CHLORIDE LEVEL 104 MMOL/L (98-107); GLOMERULAR FILTRATION RATE > 60.0 (>32); GLUCOSE, FASTING 129 MG/DL (74-106); POTASSIUM SERUM 5.2 MMOL/L (3.5-5.1); SODIUM LEVEL 138 MMOL/L (136-145)
[2022-09-01 23:30] VITALS: BP 141/76
== END 2022-09-01 23:46 | disposition home or self-care (01) ==
LOC: M ED 18:10 → EDBD 18:10 → M ED 23:46
DX: S01.81XA Laceration without foreign body of other part of head, initial encounter (principal); W01.0XXA Fall on same level from slipping, tripping and stumbling without subsequent striking against object, initial encounter; R00.1 Bradycardia, unspecified; I44.4 Left anterior fascicular block; I45.10 Unspecified right bundle-branch block; I25.2 Old myocardial infarction; F03.90 Unspecified dementia, unspecified severity, without behavioral disturbance, psychotic disturbance, mood disturbance, and anxiety; E78.5 Hyperlipidemia, unspecified; E11.9 Type 2 diabetes mellitus without complications; Z87.891 Personal history of nicotine dependence; Z91.048 Other nonmedicinal substance allergy status; Y92.129 Unspecified place in nursing home as the place of occurrence of the external cause; Y93.9 Activity, unspecified; Y99.9 Unspecified external cause status

== ENCOUNTER → 2022-09-17 | Outpatient (REF) | payer MEDICARE, MEDICAID ==
[2022-09-17 15:37] LABS: HEMATOCRIT 43.9 % (36.0-47.0); HEMOGLOBIN 13.9 g/dl (12.0-15.5); MEAN CORPUSCULAR HEMOGLOBIN 30.1 pg (27.0-33.0); MEAN CORPUSCULAR HGB CONC 31.7 g/dl (32.0-36.5); PLATELET COUNT, AUTOMATED 380 10^3/uL (150-450); RED BLOOD COUNT 4.62 10^6/uL (4.00-5.40); WHITE BLOOD COUNT 10.4 10^3/uL (4.0-10.0)
[2022-09-17 16:11] LABS: THYROXINE (T4) 8.2 UG/DL (4.5-10.9)
[2022-09-17 16:12] LABS: VITAMIN B12 LEVEL 288 PG/ML (211-911)
[2022-09-17 16:18] LABS: BLOOD UREA NITROGEN 14 MG/DL (9-23); CALCIUM LEVEL 9.5 MG/DL (8.3-10.6); CARBON DIOXIDE LEVEL 25 MMOL/L (20-31); CHLORIDE LEVEL 104 MMOL/L (98-107); GLOMERULAR FILTRATION RATE > 60.0 (>32); GLUCOSE, FASTING 111 MG/DL (74-106); POTASSIUM SERUM 4.2 MMOL/L (3.5-5.1); SODIUM LEVEL 143 MMOL/L (136-145)
[2022-09-17 16:22] LABS: THYROID STIMULATING HORMONE 2.572 uIU/ML (0.55-4.78)
== END ==
PROVIDERS: ATTEND Physician Assistant
DX: F41.9 Anxiety disorder, unspecified (principal); Z79.899 Other long term (current) drug therapy

== ENCOUNTER → 2022-12-03 | Outpatient (REF) | payer MEDICARE, MEDICAID, BC ==
[~2022-12-03] MED LIST changes: -ENAL-36 PO; +ENAL1TAB50 PO
[2022-12-03 11:09] LABS: HEMATOCRIT 43.5 % (36.0-47.0); HEMOGLOBIN 13.7 g/dl (12.0-15.5); MEAN CORPUSCULAR HEMOGLOBIN 29.7 pg (27.0-33.0); MEAN CORPUSCULAR HGB CONC 31.5 g/dl (32.0-36.5); MEAN CORPUSCULAR VOLUME 94.4 fl (80.0-96.0); PLATELET COUNT, AUTOMATED 344 10^3/uL (150-450); RED BLOOD COUNT 4.61 10^6/uL (4.00-5.40); WHITE BLOOD COUNT 10.4 10^3/uL (4.0-10.0)
[2022-12-03 11:39] LABS: BLOOD UREA NITROGEN 13 MG/DL (9-23); CALCIUM LEVEL 9.6 MG/DL (8.3-10.6); CARBON DIOXIDE LEVEL 29 MMOL/L (20-31); CHLORIDE LEVEL 104 MMOL/L (98-107); CREATININE FOR GFR 0.65 MG/DL (0.55-1.30); GLOMERULAR FILTRATION RATE > 60.0 (>32); GLUCOSE, FASTING 178 MG/DL (74-106); POTASSIUM SERUM 4.1 MMOL/L (3.5-5.1); SODIUM LEVEL 142 MMOL/L (136-145)
[2022-12-03 12:07] LABS: HEMOGLOBIN A1c 5.8 % (4.0-6.0)
== END ==
PROVIDERS: ATTEND Family Medicine
DX: E11.9 Type 2 diabetes mellitus without complications (principal)

== ENCOUNTER → 2023-01-12 | Outpatient (REF) | payer MEDICARE, MEDICAID | PROVIDERS: ATTEND Family Medicine | DX: M85.842 Other specified disorders of bone density and structure, left hand (principal) ==

== ENCOUNTER → 2023-03-02 | Outpatient (REF) | payer MEDICARE, MEDICAID ==
[2023-03-02 08:25] LABS: HEMATOCRIT 38.4 % (36.0-47.0); HEMOGLOBIN 12.5 g/dl (12.0-15.5); MEAN CORPUSCULAR HGB CONC 32.6 g/dl (32.0-36.5); MEAN CORPUSCULAR VOLUME 92.1 fl (80.0-96.0); PLATELET COUNT, AUTOMATED 297 10^3/uL (150-450); RED BLOOD COUNT 4.17 10^6/uL (4.00-5.40)
[2023-03-02 08:45] LABS: HEMOGLOBIN A1c 5.7 % (4.0-6.0)
[2023-03-02 09:05] LABS: BLOOD UREA NITROGEN 13 MG/DL (9-23); CALCIUM LEVEL 9.1 MG/DL (8.3-10.6); CARBON DIOXIDE LEVEL 29 MMOL/L (20-31); CHLORIDE LEVEL 104 MMOL/L (98-107); CREATININE FOR GFR 0.68 MG/DL (0.55-1.30); GLOMERULAR FILTRATION RATE > 60.0 (>32); GLUCOSE, FASTING 90 MG/DL (74-106); POTASSIUM SERUM 4.1 MMOL/L (3.5-5.1); SODIUM LEVEL 142 MMOL/L (136-145)
== END ==
PROVIDERS: ATTEND Family Medicine
DX: E11.9 Type 2 diabetes mellitus without complications (principal)

== ENCOUNTER → 2023-06-01 | Outpatient (REF) | payer MEDICARE, MEDICAID, BC ==
[2023-06-01 11:00] LABS: HEMATOCRIT 41.1 % (36.0-47.0); HEMOGLOBIN 13.2 g/dl (12.0-15.5); MEAN CORPUSCULAR HEMOGLOBIN 30.7 pg (27.0-33.0); MEAN CORPUSCULAR HGB CONC 32.1 g/dl (32.0-36.5); MEAN CORPUSCULAR VOLUME 95.6 fl (80.0-96.0); PLATELET COUNT, AUTOMATED 324 10^3/uL (150-450); WHITE BLOOD COUNT 8.9 10^3/uL (4.0-10.0)
[2023-06-01 11:13] LABS: BLOOD UREA NITROGEN 18 MG/DL (9-23); CALCIUM LEVEL 9.4 MG/DL (8.3-10.6); CARBON DIOXIDE LEVEL 28 MMOL/L (20-31); CHLORIDE LEVEL 105 MMOL/L (98-107); CHOLESTEROL LEVEL 98 MG/DL (<200); CHOLESTEROL RISK RATIO 2.48 (<5); CREATININE FOR GFR 0.75 MG/DL (0.55-1.30); GLOMERULAR FILTRATION RATE > 60.0 (>32); GLUCOSE, FASTING 155 MG/DL (74-106); HDL CHOLESTEROL 39.5 MG/DL (>40); LDL CHOLESTEROL 40.3 MG/DL (<100); NON-HDL-C 58.5 MG/DL; POTASSIUM SERUM 3.4 MMOL/L (3.5-5.1); SODIUM LEVEL 144 MMOL/L (136-145); TRIGLYCERIDES LEVEL 91 MG/DL (<150)
[2023-06-01 11:36] LABS: HEMOGLOBIN A1c 4.9 % (4.0-6.0)
== END ==
PROVIDERS: ATTEND Family Medicine
DX: E11.9 Type 2 diabetes mellitus without complications (principal)

== ENCOUNTER → 2023-06-03 | Outpatient (REF) | payer MEDICARE, MEDICAID, BC ==
[2023-06-03 17:21] LABS: HEMOGLOBIN 13.8 g/dl (12.0-15.5); MEAN CORPUSCULAR HEMOGLOBIN 30.3 pg (27.0-33.0); MEAN CORPUSCULAR HGB CONC 32.1 g/dl (32.0-36.5); MEAN CORPUSCULAR VOLUME 94.5 fl (80.0-96.0); PLATELET COUNT, AUTOMATED 349 10^3/uL (150-450); RED BLOOD COUNT 4.55 10^6/uL (4.00-5.40); WHITE BLOOD COUNT 10.7 10^3/uL (4.0-10.0)
[2023-06-03 17:36] LABS: BLOOD UREA NITROGEN 13 MG/DL (9-23); CALCIUM LEVEL 9.4 MG/DL (8.3-10.6); CARBON DIOXIDE LEVEL 29 MMOL/L (20-31); CHLORIDE LEVEL 102 MMOL/L (98-107); CREATININE FOR GFR 0.71 MG/DL (0.55-1.30); GLOMERULAR FILTRATION RATE > 60.0 (>32); GLUCOSE, FASTING 42 MG/DL (74-106); POTASSIUM SERUM 3.8 MMOL/L (3.5-5.1); SODIUM LEVEL 143 MMOL/L (136-145)
== END ==
PROVIDERS: ATTEND Physician Assistant
DX: R29.6 Repeated falls (principal)

== ENCOUNTER → 2023-07-07 | Outpatient (REF) | payer MEDICARE, MEDICAID | PROVIDERS: ATTEND Family Medicine | DX: S60.212A Contusion of left wrist, initial encounter (principal) ==

== ENCOUNTER → 2023-08-31 | Outpatient (REF) | payer MEDICARE, MEDICAID ==
[2023-08-31 11:11] LABS: HEMATOCRIT 37.4 % (36.0-47.0); MEAN CORPUSCULAR HEMOGLOBIN 30.2 pg (27.0-33.0); MEAN CORPUSCULAR HGB CONC 32.1 g/dl (32.0-36.5); PLATELET COUNT, AUTOMATED 301 10^3/uL (150-450); RED BLOOD COUNT 3.98 10^6/uL (4.00-5.40); WHITE BLOOD COUNT 9.3 10^3/uL (4.0-10.0)
[2023-08-31 11:32] LABS: BLOOD UREA NITROGEN 15 MG/DL (9-23); CALCIUM LEVEL 9.3 MG/DL (8.3-10.6); CARBON DIOXIDE LEVEL 27 MMOL/L (20-31); CHLORIDE LEVEL 109 MMOL/L (98-107); GLOMERULAR FILTRATION RATE > 60.0 (>32); GLUCOSE, FASTING 140 MG/DL (74-106); SODIUM LEVEL 145 MMOL/L (136-145)
== END ==
PROVIDERS: ATTEND Family Medicine
DX: E11.9 Type 2 diabetes mellitus without complications (principal)

== ENCOUNTER → 2023-09-18 | Outpatient (REF) | payer MEDICARE, MEDICAID ==
[2023-09-18 15:57] LABS: HEMATOCRIT 42.3 % (36.0-47.0); HEMOGLOBIN 13.9 g/dl (12.0-15.5); MEAN CORPUSCULAR HEMOGLOBIN 30.5 pg (27.0-33.0); MEAN CORPUSCULAR HGB CONC 32.9 g/dl (32.0-36.5); PLATELET COUNT, AUTOMATED 334 10^3/uL (150-450); RED BLOOD COUNT 4.55 10^6/uL (4.00-5.40); WHITE BLOOD COUNT 9.7 10^3/uL (4.0-10.0)
[2023-09-18 16:18] LABS: ALBUMIN 3.8 G/DL (3.2-5.2); ALKALINE PHOSPHATASE 83 U/L (46-116); ALT/SGPT 14 U/L (7.0-40); AST/SGOT 20 U/L (<34); BILIRUBIN,TOTAL 0.5 MG/DL (0.3-1.2); BLOOD UREA NITROGEN 12 MG/DL (9-23); CALCIUM LEVEL 9.2 MG/DL (8.3-10.6); CARBON DIOXIDE LEVEL 28 MMOL/L (20-31); CHLORIDE LEVEL 104 MMOL/L (98-107); CREATININE FOR GFR 0.55 MG/DL (0.55-1.30); GLOMERULAR FILTRATION RATE > 60.0 (>32); GLUCOSE, FASTING 118 MG/DL (74-106); POTASSIUM SERUM 4.4 MMOL/L (3.5-5.1); SODIUM LEVEL 140 MMOL/L (136-145)
== END ==
PROVIDERS: ATTEND Physician Assistant
DX: R29.6 Repeated falls (principal); Z79.899 Other long term (current) drug therapy

== ENCOUNTER → 2023-10-13 | Outpatient (REF) | payer MEDICARE, MEDICAID | PROVIDERS: ATTEND Family Medicine | DX: M47.817 Spondylosis without myelopathy or radiculopathy, lumbosacral region (principal); R10.2 Pelvic and perineal pain ==

== ENCOUNTER → 2023-10-13 | Outpatient (REF) | payer MEDICARE, MEDICAID ==
[2023-10-13 15:02] LABS: HEMATOCRIT 38.3 % (36.0-47.0); HEMOGLOBIN 12.9 g/dl (12.0-15.5); MEAN CORPUSCULAR HEMOGLOBIN 30.9 pg (27.0-33.0); MEAN CORPUSCULAR HGB CONC 33.7 g/dl (32.0-36.5); MEAN CORPUSCULAR VOLUME 91.6 fl (80.0-96.0); PLATELET COUNT, AUTOMATED 348 10^3/uL (150-450); RED BLOOD COUNT 4.18 10^6/uL (4.00-5.40); WHITE BLOOD COUNT 14.9 10^3/uL (4.0-10.0)
[2023-10-13 15:29] LABS: ALBUMIN 3.4 G/DL (3.2-5.2); ALKALINE PHOSPHATASE 77 U/L (46-116); ALT/SGPT < 9 U/L (7.0-40); AST/SGOT 11 U/L (<34); BILIRUBIN,DIRECT 0.3 MG/DL (<0.4); BILIRUBIN,TOTAL 0.8 MG/DL (0.3-1.2); BLOOD UREA NITROGEN 12 MG/DL (9-23); CALCIUM LEVEL 9.4 MG/DL (8.3-10.6); CARBON DIOXIDE LEVEL 25 MMOL/L (20-31); CHLORIDE LEVEL 101 MMOL/L (98-107); CREATININE FOR GFR 0.59 MG/DL (0.55-1.30); GLOMERULAR FILTRATION RATE > 60.0 (>32); GLUCOSE, FASTING 171 MG/DL (74-106); POTASSIUM SERUM 4.1 MMOL/L (3.5-5.1); SODIUM LEVEL 137 MMOL/L (136-145); TOTAL PROTEIN 7.2 G/DL (5.7-8.2)
[2023-10-13 15:31] LABS: THYROID STIMULATING HORMONE 1.388 uIU/ML (0.55-4.78)
== END ==
PROVIDERS: ATTEND Physician Assistant
DX: R41.82 Altered mental status, unspecified (principal); M47.817 Spondylosis without myelopathy or radiculopathy, lumbosacral region; R10.2 Pelvic and perineal pain

== ENCOUNTER 2023-10-14 05:40 | Emergency (ER) | payer MEDICARE, MEDICAID ==
[~2023-10-14] VITALS: Ht 162.6 cm; Wt 55.6 kg
[2023-10-14] MEDS ORDERED: dexAMETHasone 20MG/5ML VIAL IV ONE (05:50)
[2023-10-14 06:31] LABS: BASO % 0.2 % (0.0-1.0); HEMATOCRIT 42.3 % (36.0-47.0); HEMOGLOBIN 13.8 g/dl (12.0-15.5); LYMPH # 1.3 10^3/uL (1.5-5.0); LYMPH % 7.9 % (24.0-44.0); MEAN CORPUSCULAR HEMOGLOBIN 29.7 pg (27.0-33.0); MEAN CORPUSCULAR HGB CONC 32.6 g/dl (32.0-36.5); MEAN CORPUSCULAR VOLUME 91.2 fl (80.0-96.0); MONO # 1.3 10^3/uL (0.0-0.8); MONO % 7.9 % (2.0-8.0); NEUTROPHILS # 13.5 10^3/uL (1.5-8.5); NEUTROPHILS % 83.6 % (36.0-66.0); PLATELET COUNT, AUTOMATED 366 10^3/uL (150-450); RED BLOOD COUNT 4.64 10^6/uL (4.00-5.40); WHITE BLOOD COUNT 16.1 10^3/uL (4.0-10.0)
[2023-10-14 06:41] VITALS: TEMP 100.1
[2023-10-14 07:01] LABS: ALBUMIN 3.6 G/DL (3.2-5.2); ALKALINE PHOSPHATASE 80 U/L (46-116); ALT/SGPT 14 U/L (7.0-40); AST/SGOT 18 U/L (<34); BILIRUBIN,DIRECT 0.3 MG/DL (<0.4); BILIRUBIN,TOTAL 0.9 MG/DL (0.3-1.2); BLOOD UREA NITROGEN 13 MG/DL (9-23); CALCIUM LEVEL 10.1 MG/DL (8.3-10.6); CARBON DIOXIDE LEVEL 28 MMOL/L (20-31); CHLORIDE LEVEL 99 MMOL/L (98-107); CK-MB VALUE MASS < 1.0 NG/ML (<3.6); CPK CREATINE PHOSPHOKINASE 91 U/L (34-145); CREATININE FOR GFR 0.55 MG/DL (0.55-1.30); GLOMERULAR FILTRATION RATE > 60.0 (>32); GLUCOSE, FASTING 236 MG/DL (74-106); MB/CK RELATIVE INDEX 1.09 (< OR =4); POTASSIUM SERUM 4.3 MMOL/L (3.5-5.1); SODIUM LEVEL 139 MMOL/L (136-145); TOTAL PROTEIN 7.8 G/DL (5.7-8.2)
[2023-10-14] MEDS ORDERED: NS 1,000 ML IV ONE (07:05)
[2023-10-14] MEDS ORDERED: CEFEPIME HCL 2 GM in D5W MINI-BAG PLUS 50 ML IV ONE (07:05)
[2023-10-14 07:57] LABS: APPEARANCE, URINE HAZY (CLEAR); BACTERIA, URINE AUTO NEGATIVE (NEGATIVE); BILIRUBIN, URINE AUTO NEGATIVE (NEGATIVE); BLOOD, URINE BLOOD 1+ (NEGATIVE); COLOR, URINE AMBER (YELLOW); GLUCOSE, URINE (UA) AUTO 1+ mg/dL (NEGATIVE); KETONE, URINE AUTO 1+ mg/dL (NEGATIVE); LEUKOCYTE ESTERASE, URINE AUTO 1+ (NEGATIVE); MUCUS, URINE SMALL (NEGATIVE); NITRITE, URINE AUTO NEGATIVE (NEGATIVE); PROTEIN, URINE AUTO 1+ mg/dL (NEGATIVE); RBC, URINE AUTO 68 /HPF (0-3); SPECIFIC GRAVITY URINE AUTO 1.021 (1.002-1.035); SQUAMOUS EPITHELIAL CELL UR AU 0 /HPF (0-6); WBC, URINE AUTO 48 /HPF (0-3)
[2023-10-14] MEDS ORDERED: MED REC IN PROGRESS XX SCH (08:05)
[2023-10-14 09:37] VITALS: O2SAT 100
[2023-10-14 09:45] VITALS: BP 154/70
== END 2023-10-14 10:54 | disposition home or self-care (01) ==
LOC: M ED 05:40
DX: I62.00 Nontraumatic subdural hemorrhage, unspecified (principal); J96.01 Acute respiratory failure with hypoxia; E87.20 Acidosis, unspecified; I45.81 Long QT syndrome; I44.7 Left bundle-branch block, unspecified; I44.4 Left anterior fascicular block; I25.2 Old myocardial infarction; E11.9 Type 2 diabetes mellitus without complications; I10 Essential (primary) hypertension; G30.9 Alzheimer's disease, unspecified; Z91.048 Other nonmedicinal substance allergy status; Z79.899 Other long term (current) drug therapy; Z79.1 Long term (current) use of non-steroidal anti-inflammatories (NSAID); Z79.4 Long term (current) use of insulin
CPT/HCPCS: 51701; 70450; 71045; 80048; 80076; 81001; 82550; 82553; 83605; 83880; 84484; 85025; 87040; 87088; 87486; 87581; 87633; 87798; 93005; 93041; 94760; 96374; 96375; 99285; J0692; J1100